=== PATIENT | male | born 1950 | race Two or more races ===

== ENCOUNTER 2024-11-25 17:46 | Inpatient (IN) | payer OTHER ==
[~2024-11-25] VITALS: Ht 177.8 cm; Wt 134.8 kg
--- NOTE | 2024-11-25 19:31 | DVH ---
CHEST RADIOGRAPH Indication: sob Technique: Single frontal view of the chest was obtained Comparison: None FINDINGS: Lines and Tubes: Dual-chamber pacemaker in place Lungs: Poor inspiratory effort Pleura: No effusion. No pneumothorax. Cardiomediastinal contours: Unremarkable Bones: No acute osseous abnormality. IMPRESSION: 1. No acute cardiopulmonary disease. 2. Poor inspiratory effort.
--- NOTE | 2024-11-25 20:02 | ED.PDOC ---
History of Present Illness HPI Comments 74 y/o obese M, with a Hx of bronchitis, COPD w/home O2, DM, HTN, HI, PNA, PTCA, and Pacemaker, is [id number] family for c/o shortness of breath, weakness worsened today. Per family member, patient endorses on ongoing symptom, intermittently, for the past 2x months. He is reported to have had been hospita lized and placed in rehabilitation facilities for symptoms following PNA diagnosis since onset of symptom. Patient also has a reported "70% heart blockage" and was not able to get access to mobile O2 that was prescribed at the moment. Patient denies any chest pain, cough, congestion, fever, chills, or other associated symptoms or modifying factors at this time. Chief Complaint: Shortness of Breath Time Seen by MD: 18:30 Primary Care Provider: out of area Reviewed Notes: Nurses Notes, Medications, Allergies Allergies: Coded Allergies: Hydromorphone (Verified Adverse Reaction, Unknown, hallucinations, 11/25/24) Information Source: Patient, Relative Mode of Arrival: Ambulatory Past Medical History PAST MEDICAL HISTORY: COPD (w/home O2), DM, HTN, HI Past Medical History (Other): PNA. bronchitis Surgical History: Pacemaker, PTCA Family History Family History: Unknown Social History Smoker: Non-Smoker Alcohol: Denies ETOH Use Drugs: Denies Drug Use Lives In: Home All Other Systems: Reviewed and Negative (Comprehensive systems review obtained and negative except for what is stated in the HPI.) Physical Exam General Appearance: No Apparent Distress, Obese, Other (frail and elderly appearance, speaks full sentences) HEENT: Normal ENT Inspection, Pharynx Normal, TMs Normal Neck: Full Range of Motion, Non-Tender, Normal, Normal Inspection Respiratory: Chest Non-Tender, Lungs Clear, No Accessory Muscle Use, No Respiratory Distress, Normal Breath Sounds Cardiovascular: No Edema, No JVD, No Murmur, No Gallop, Normal Peripheral Pulses, Regular Rate/Rhythm Breast Exam: Deferred Gastrointestinal: No Organomegaly, Non Tender, No Pulsatile Mass, Normal Bowel Sounds, Soft Genitalia: Deferred Pelvic: Deferred Rectal: Deferred Extremities: No calf tenderness, Normal capillary refill, Normal inspection, Normal range of motion, Non-tender, No pedal edema Musculoskeletal : Apperance: Normal Neurologic: Alert, roofing sales representative II-XII nml as Tested, No Motor Deficits, Normal Affect, Normal Mood, No Sensory Deficits Cerebellar Function: Normal Reflexes: Normal Skin: Dry, Normal Color, Warm Lymphatic: No Adenopathy Was a procedure done? Was a procedure done?: No EKG EKG : Pulse Rate (adult): 62 [place]: Normal Cardiac Rhythm: Paced Block: None Hypertrophy: None ST: Normal Differential Dx Considerations may include: PNA, URI, viral syndrome, PE, HI, chf, respiratory failure, copd exacerbation, pleural effusion, lung mass X-Ray, Labs, Meds, VS Vital Signs Date Time Temp Pulse Resp B/P (MAP) Pulse Ox O2 Delivery O2 Flow Rate FiO2 11/25/24 20:52 66 19 92 Room Air* 0 21 11/25/24 20:51 98.7 66 19 102/69 (80) 92 98.7 11/25/24 20:02 62 11/25/24 18:00 62 11/25/24 17:56 97.0 77 16 145/110 (122) 96 97.0 Lab Test 11/25/24 19:30 Range/Units White Blood Count 12.8 H 4.4-10.8 10^3/uL Red Blood Count 5.06 4.5-5.90 10^6/uL Hemoglobin 16.6 13.5-17.5 g/dL Hematocrit 47.2 41.0-53.0 % Mean Corpuscular Volume 93.2 80.0-100.0 fL Mean Corpuscular Hemoglobin 32.8 H 28.0-32.0 pg Mean Corpuscular Hemoglobin Concent 35.1 32.0-36.0 g/dL Red Cell Distribution Width 16.0 H 11.8-14.3 % Platelet Count 337 140-450 10^3/uL Mean Platelet Volume 6.9 6.9-10.8 fL Neutrophils (%) (Auto) 68.6 37.0-80.0 % Lymphocytes (%) (Auto) 22.7 10.0-50.0 % Monocytes (%) (Auto) 7.6 0.0-12.0 % Eosinophils (%) (Auto) 0.7 0.0-7.0 % Basophils (%) (Auto) 0.4 0.0-2.0 % Neutrophils # (Auto) 8.8 H 1.6-8.6 10 ^3/uL Lymphocytes # (Auto) 2.9 0.4-5.4 10 ^3/uL Monocytes # (Auto) 1.0 0-1.3 10 ^3/uL Eosinophils # (Auto) 0.1 0-0.8 10 ^3/uL Basophils # (Auto) 0 0-0.2 10 ^3/uL Nucleated Red Blood Cells 0.1 % Sodium Level 136 136-145 mmol/L Potassium Level 5.7 *H 3.5-5.1 mmol/L Chloride Level 102 98-107 mmol/L Carbon Dioxide Level 27 20-31 mmol/L Anion Gap 7 5-15 Blood Urea Nitrogen 28 H 9-23 mg/dL Creatinine 2.04 H 0.700-1.30 mg/dL Glomerular Filtration Rate Calc 34 >90 mL/min BUN/Creatinine Ratio 13.7 10.0-20.0 Serum Glucose 206 H 74-106 mg/dL Calcium Level 10.0 8.7-10.4 mg/dL Troponin I High Sensitivity 18 </=54 ng/L B-Type Natriuretic Peptide 61.39 0-100 pg/mL Current Medications Medications (Trade) Dose Ordered Sig/Matt Route Start Time Stop Time Status Last Admin Ondansetron HCl (Zofran Po) 4 mg ONCE ONCE PO 11/25/24 18:45 11/25/24 18:46 DC 11/25/24 20:51 [place] [id number] Ph: [phone] DIAGNOSTIC IMAGING Diagnostic Imaging Report : [id number] Signed PATIENT: WILTON MARQUEZ ACCT: [id number] UNIT: [id number] : 1950 LOC: ER ROOM / BED: / AGE / SEX: 74 / M ADM STATUS: REG ER SERVICE [id number] ORDERING PHYSICIAN: DESMOND TREVINO MD PROCEDURE(s): CXRP - CHEST PORTABLE REASON: sob ORDER NUMBER(s): [id number], ACCESSION NUMBER(s): [id number] CHEST RADIOGRAPH Indication: sob Technique: Single frontal view of the chest was obtained Comparison: None FINDINGS: Lines and Tubes: Dual-chamber pacemaker in place Lungs: Poor inspiratory effort Pleura: No effusion. No pneumothorax. Cardiomediastinal contours: Unremarkable Bones: No acute osseous abnormality. IMPRESSION: 1. No acute cardiopulmonary disease. 2. Poor inspiratory effort. ATED BY: CARLEEN GROVER Jr., DO DICTATED DATE/TIME: 11/25/241928 SIGNED BY: CARLEEN GROVER Jr., DO SIGNED DATE/TIME: 11/25/241928 CC: Time of 1ST Reevaluation: 19:00 Reevaluation 1ST: Unchanged Patient Education/Counseling: Diagnosis, Treatment Family Education/Counseling: Diagnosis, Treatment Additional Information Previous medical encounters reviewed: n/a The following tests were ordered, and results were reviewed by me: EKG, troponin, BMP, BNP, CBC, CXR Additional Information was gathered from interviewing the following independent historians: family I reviewed and agreed with the following test results read by other providers: CXR I discussed treatment and results with medical personnel and: Patient, family Departure 1 Departure Time of Disposition: 21:01 Impression: Primary Impression: Dyspnea Qualified Codes: R06.00 - Dyspnea, unspecified Additional Impressions: Generalized weakness Renal failure Qualified Codes: N17.9 - Acute kidney failure, unspecified Hyperkalemia Disposition: ADMITTED INPATIENT Admit to: Tele Condition: Serious Discharged With: Self, Relative Critical Care Note Critical Care Time?: Yes (55 min-critical care time only) Critical care comment: Due to concerns for patients condition deteriorating, the care required my highest level of attention and readiness to intervene. I assessed the patient, reviewed the medical records, ordered the appropriate tests and treatments, then reassessed for results and responsiveness. I communicated with medical personnel and consultants and formulated a plan of care. Total critical care time excludes any procedures Stability Stability form required: No Heart Score Heart Score: Heart Score Response (Comments) Value History Moderate Suspicious 1 EKG Normal 0 Age >65 2 Risk Factors >3 or Hx ASHD 2 Troponin Normal limit 0 Total 5 I personally scribed for DESMOND TREVINO MD ([email or web address]) on 11/25/24 at 20:02. Electr onically submitted by Michael Kang ([email or web address]). DESMOND TREVINO MD Nov 25, 2024 20:02
[2024-11-25 20:18] LABS: Basophils # (auto) 0 10 ^3/uL (0-0.2); Basophils % (auto) 0.4 % (0.0-2.0); Eosinophils # (auto) 0.1 10 ^3/uL (0-0.8); Eosinophils % (auto) 0.7 % (0.0-7.0); Hematocrit 47.2 % (41.0-53.0); Hemoglobin 16.6 g/dL (13.5-17.5); Lymphocytes # (auto) 2.9 10 ^3/uL (0.4-5.4); Lymphocytes % (auto) 22.7 % (10.0-50.0); Mean Corpuscular Hemoglobin 32.8 pg (28.0-32.0); Mean Corpuscular Hgb Conc. 35.1 g/dL (32.0-36.0); Mean Corpuscular Volume 93.2 fL (80.0-100.0); Monocytes % (auto) 7.6 % (0.0-12.0); Neutrophils # (auto) 8.8 10 ^3/uL (1.6-8.6); Neutrophils % (auto) 68.6 % (37.0-80.0); Nucleated Red Blood Cells % 0.1 %; Platelet Count (auto) 337 10^3/uL (140-450); Red Blood Cells 5.06 10^6/uL (4.5-5.90); White Blood Cell 12.8 10^3/uL (4.4-10.8)
[2024-11-25 20:23] LABS: Chloride 102 mmol/L (98-107); Sodium 136 mmol/L (136-145)
[2024-11-25 20:24] LABS: Anion Gap 7 (5-15); Carbon Dioxide 27 mmol/L (20-31)
[2024-11-25 20:29] LABS: BUN/Creatinine Ratio 13.7 (10.0-20.0)
[2024-11-25 20:30] LABS: Blood Urea Nitrogen 28 mg/dL (9-23); Glucose 206 mg/dL (74-106)
[2024-11-25 20:32] LABS: Potassium 5.7 mmol/L (3.5-5.1)
[2024-11-25] MEDS: ONDANSETRON ODT 4 MG TAB PO ONE (20:51)
[2024-11-25 20:52] VITALS: PULSE 66; RESP 19; O2SAT 92
[2024-11-26] VITALS (12 sets, daily range): BP systolic 104–128; BP diastolic 62–77; PULSE 67–90; RESP 14–22; TEMP 97.5–98.8; O2SAT 94–98
[2024-11-26] MEDS ORDERED: IPRATROPIUM BROM 0.5 MG/2.5ML INH SOL NEB PRN
[2024-11-26] MEDS ORDERED: NITROGLYCERIN 0.4 MG SL TAB SL PRN
[2024-11-26] MEDS ORDERED: DEXTROSE (50%) 50ML SYRG IV PRN
[2024-11-26] MEDS ORDERED: MORPHINE SULFATE INJ 2 MG/ml SYRG IV PRN
[2024-11-26] MEDS: ACCU-CHEK COMFORT CURVE STRIP VI SCH (00:56)
[2024-11-26] MEDS: SODIUM ZIRCONIUM CYCL 10 GM PAK PO ONE ×2 (00:59→14:14)
[2024-11-26] MEDS: InsuLIN REG 1unit/0.01ml Soln (100units/ml) SC SCH (01:00)
--- NOTE | 2024-11-26 04:29 | DVHHP2 ---
History of Present Illness Reason for Visit: Shortness for breath History of Present Illness 74-year-old male presents for evaluation of shortness for breath. Patient reports being discharged four days ago from a rehab facility. The patient was supposed to receiving oxygen tank yesterday which never came. He presented for worsening shortness for breath that has been ongoing for the past two days. Denies chest pain, cough or fever. No abdominal pain. No other acute complaints reported. Past Medical History COPD, diabetes mellitus, hypertension, mi Past Surgical History Pacemaker and PTCA Family History Noncontributory Smoke: No ALCOHOL: none Drugs: None Lives: with Family Review of Systems Review of Systems Review of systems are currently negative otherwise addressed in HPI. Allergies: Coded Allergies: Hydromorphone (Verified Adverse Reaction, Unknown, hallucinations, 11/25/24) Medications Current Medications Medications Dose Ordered Sig/Matt Route Start Time Stop Time Status Last Admin Dose Admin Albuterol 2.5 mg Q6HPRN PRN NEB 11/26/24 00:00 Amlodipine Besylate 5 mg DAILY PO 11/26/24 10:00 Aspirin 81 mg DAILY PO 11/26/24 10:00 Ipratropium [place] 0.5 mg Q6HPRN PRN NEB 11/26/24 00:00 Diagnostic Test (Pha) 1 strip Q6HR 11/26/24 00:00 11/26/24 00:56 1 STRIP Insulin Human Regular Q6HR SC 11/26/24 00:00 11/26/24 01:00 4 UNITS Dextrose 50 ml UD PRN IV 11/26/24 00:00 Ondansetron HCl 4 mg Q4HP PRN IV 11/26/24 00:00 Acetaminophen 650 mg Q6HP PRN PO 11/26/24 00:00 Nitroglycerin 0.4 mg Q5MINP PRN SL 11/26/24 00:00 Morphine Sulfate 2 mg Q30M PRN IV 11/26/24 00:00 UNV Exam Vital Signs Vital Signs Date Time Temp Pulse Resp B/P (MAP) Pulse Ox O2 Delivery O2 Flow Rate FiO2 11/26/24 01:04 98.8 62 20 104/62 (76) 95 98.8 11/26/24 01:00 2.0 28 11/26/24 00:55 Nasal Cannula* Exam Gen: 74-year-old male in mild distress Skin: Warm, dry, normal color and texture, no rash. HEENT: Normocephalic atraumatic, mucous membranes moist and pink. Neck: Cervical and supraclavicular nodes normal without enlargement, trachea is midline, thyroid gland is normal without masses. Pulmonary: Diminished breath sounds bilaterally Cardiac: Regular rate and rhythm. No murmur Abdomen: Soft, nontender, nondistended, bowel sounds present all 4 quadrants, no guarding, no rigidity, no organomegaly. Extremities: No cyanosis, clubbing, no edema Neuro: Cranial nerves II through XII grossly intact, normal affect and speech, no focal motor deficits. Labs/Xrays ORDERING PHYSICIAN: DESMOND TREVINO MD PROCEDURE(s): CXRP - CHEST PORTABLE REASON: sob ORDER NUMBER(s): [id number], ACCESSION NUMBER(s): [id number] CHEST RADIOGRAPH Indication: sob Technique: Single frontal view of the chest was obtained Comparison: None FINDINGS: Lines and Tubes: Dual-chamber pacemaker in place Lungs: Poor inspiratory effort Pleura: No effusion. No pneumothorax. Cardiomediastinal contours: Unremarkable Bones: No acute osseous abnormality. IMPRESSION: 1. No acute cardiopulmonary disease. 2. Poor inspiratory effort. Labs Test 11/26/24 00:55 11/25/24 23:53 11/25/24 19:30 Range/Units POC Glucose 227 H 70-106 mg/dl D-Dimer, Quantitative < 0.19 0.0-0.49 mg/L FEU Troponin I High Sensitivity 18 </=54 ng/L White Blood Count 12.8 H 4.4-10.8 10^3/uL Red Blood Count 5.06 4.5-5.90 10^6/uL Hemoglobin 16.6 13.5-17.5 g/dL Hematocrit 47.2 41.0-53.0 % Mean Corpuscular Volume 93.2 80.0-100.0 fL Mean Corpuscular Hemoglobin 32.8 H 28.0-32.0 pg Mean Corpuscular Hemoglobin Concent 35.1 32.0-36.0 g/dL Red Cell Distribution Width 16.0 H 11.8-14.3 % Platelet Count 337 140-450 10^3/uL Mean Platelet Volume 6.9 6.9-10.8 fL Neutrophils (%) (Auto) 68.6 37.0-80.0 % Lymphocytes (%) (Auto) 22.7 10.0-50.0 % Monocytes (%) (Auto) 7.6 0.0-12.0 % Eosinophils (%) (Auto) 0.7 0.0-7.0 % Basophils (%) (Auto) 0.4 0.0-2.0 % Neutrophils # (Auto) 8.8 H 1.6-8.6 10 ^3/uL Lymphocytes # (Auto) 2.9 0.4-5.4 10 ^3/uL Monocytes # (Auto) 1.0 0-1.3 10 ^3/uL Eosinophils # (Auto) 0.1 0-0.8 10 ^3/uL Basophils # (Auto) 0 0-0.2 10 ^3/uL Nucleated Red Blood Cells 0.1 % Sodium Level 136 136-145 mmol/L Potassium Level 5.7 *H 3.5-5.1 mmol/L Chloride Level 102 98-107 mmol/L Carbon Dioxide Level 27 20-31 mmol/L Anion Gap 7 5-15 Blood Urea Nitrogen 28 H 9-23 mg/dL Creatinine 2.04 H 0.700-1.30 mg/dL Glomerular Filtration Rate Calc 34 >90 mL/min BUN/Creatinine Ratio 13.7 10.0-20.0 Serum Glucose 206 H 74-106 mg/dL Calcium Level 10.0 8.7-10.4 mg/dL B-Type Natriuretic Peptide 61.39 0-100 pg/mL Assessment/Plan Assessment/Plan Assessment Acute on chronic respiratory failure Acute renal failure Hypokalemia Uncontrolled diabetes mellitus Plan Admit the patient to [facility] to the hospitalist Pulmonary consultation Nephrology consult Echocardiogram pending Renal ultrasound pending Continue treatment per orders. Plan discussed with: Patient My Orders Orders - ADAM ABRAMSCNP Procedure Category Date Status Time Albuterol Medneb PHA 11/26/24 In Process (Ventolin Medneb) 00:00 Urinalysis LAB 11/25/24 Logged 23:46 Amlodipine Tablet PHA 11/26/24 In Process (Norvasc Tablet) 10:00 Aspirin Tablet PHA 11/26/24 In Process 10:00 Ipratropium Medneb PHA 11/26/24 In Process (Atrovent Medneb) 00:00 *Dr. Parviz Yusuf CONS 11/25/24 Transmitted -[place] 23:46 Consistent DIET 11/26/24 Transmitted Carb(Ccho)Diabetes Breakfast Basic Metabolic Panel LAB 11/26/24 Logged 04:00 Glucose Blood PHA 11/26/24 In Process (Accu-Chek Comfort 00:00 Insulin R (Human) PHA 11/26/24 In Process (Insulin R) 00:00 Dextrose 50% Syringe PHA 11/26/24 In Process 00:00 Admit ADMIT 11/25/24 Transmitted 23:46 Ondansetron Hcl PHA 11/26/24 In Process (Zofran) 00:00 Complete Blood Count LAB 11/26/24 Logged 04:00 Echo 2d Mode Cardiac US 11/25/24 Logged DOP 23:46 Condition: Fair JEAN PIERRE 11/25/24 In Process 23:46 Acetaminophen Tablet PHA 11/26/24 In Process (Tylenol Tablet) 00:00 Bedrest With Bathroom JEAN PIERRE 11/25/24 In Process Privileg 23:46 Nitroglycerin PHA 11/26/24 In Process Sublingual (Ntrostat 00:00 Morphine Sulfate PHA 11/26/24 Pending Injection 00:00 Stat Ekg For Chest JEAN PIERRE 11/25/24 In Process Pain 23:46 Notify Md Of Changes JEAN PIERRE 11/25/24 In Process From Base 23:46 Automobile Tester For JEAN PIERRE 11/25/24 In Process 24 Hours 23:46 Emergency Dysrhythmia JEAN PIERRE 11/25/24 In Process Protocol 23:46 Rhythm Strips Once JEAN PIERRE 11/25/24 In Process Every Shift 23:46 Oxygen By Nasal RT 11/25/24 Transmitted Cannula 23:46 *Consult CONS 11/25/24 Transmitted / 23:46 Kidney US 11/26/24 Taken 00:00 Date of Service: Nov 25, 2024 Billing Provider: ADAM ABRAMS Common Visit Codes: [id number] INP/OBS CARE (HIGH) ADAM ABRAMS Nov 26, 2024 04:29
[2024-11-26] MEDS: ACETAMINOPHEN 325 MG TAB PO PRN (05:14)
[2024-11-26 05:27] LABS: Basophils # (auto) 0.1 10 ^3/uL (0-0.2); Basophils % (auto) 0.6 % (0.0-2.0); Eosinophils # (auto) 0 10 ^3/uL (0-0.8); Eosinophils % (auto) 0.3 % (0.0-7.0); Hematocrit 44.8 % (41.0-53.0); Hemoglobin 15.8 g/dL (13.5-17.5); Lymphocytes # (auto) 3.9 10 ^3/uL (0.4-5.4); Lymphocytes % (auto) 24.3 % (10.0-50.0); Mean Corpuscular Hemoglobin 32.8 pg (28.0-32.0); Mean Corpuscular Hgb Conc. 35.1 g/dL (32.0-36.0); Mean Corpuscular Volume 93.2 fL (80.0-100.0); Monocytes # (auto) 1.2 10 ^3/uL (0-1.3); Monocytes % (auto) 7.6 % (0.0-12.0); Neutrophils # (auto) 10.9 10 ^3/uL (1.6-8.6); Neutrophils % (auto) 67.2 % (37.0-80.0); Nucleated Red Blood Cells % 0.1 %; Platelet Count (auto) 294 10^3/uL (140-450); Red Blood Cells 4.81 10^6/uL (4.5-5.90); Red Cell Distribution Width 16.2 % (11.8-14.3); White Blood Cell 16.1 10^3/uL (4.4-10.8)
[2024-11-26 05:37] LABS: Chloride 100 mmol/L (98-107)
[2024-11-26 05:38] LABS: Anion Gap 8 (5-15); Calcium 9.7 mg/dL (8.7-10.4); Carbon Dioxide 26 mmol/L (20-31)
[2024-11-26 05:43] LABS: BUN/Creatinine Ratio 14.6 (10.0-20.0)
[2024-11-26 05:44] LABS: Blood Urea Nitrogen 37 mg/dL (9-23); Glucose 144 mg/dL (74-106); Potassium 5.5 mmol/L (3.5-5.1); Sodium 134 mmol/L (136-145)
--- NOTE | 2024-11-26 06:21 | DVH ---
INDICATION: renal failure TECHNIQUE: Multiple real-time sonographic images of the kidneys and bladder were obtained. COMPARISON: None FINDINGS: The right kidney measures 11.0 cm in length, which is normal in size. There is normal echog enicity of the right kidney. No hydronephrosis. Decreased cortical thickness. The left kidney measures 11.4 cm in length, which is normal in size. There is normal echogenicity of the left kidney. There is a cyst measuring 4.0 x 3.2 x 3.1 cm. No hydronephrosis. Decreased cortical thickness. Urinary bladder is underdistended. Enlarged prostate measuring 85 cc in volume. IMPRESSION: 1. No hydronephrosis. Decreased cortical thickness. 2. Underdistended urinary bladder. 3. Enlarged prostate.
--- NOTE | 2024-11-26 07:16 | ECG ---
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
[2024-11-26 09:06] LABS: COVID19 ANTIGEN SOFIA FIA NEGATIVE (NEGATIVE); Rapid Influenza A Negative (Negative); Rapid Influenza B Negative (Negative)
[2024-11-26] MEDS: amLODIPine BESYLATE 5 MG TAB PO SCH (10:39)
[2024-11-26] MEDS: ASPirin 81 mg TAB PO SCH (10:39)
[2024-11-26] MEDS: BUDESONIDE (INHALATION) 0.5 MG/2 ML NEB NEB SCH (11:10)
[2024-11-26] MEDS: ALBUTEROL SULF 2.5 MG/0.5ML(0.5%) NEB SOLN NEB PRN (11:15)
[2024-11-26] MEDS: SODIUM BICARB 50mEq/50ml Vial 50 ML in SOD CHL 0.45% 1,000 ML IV ONE (13:15)
[2024-11-26] MEDS ORDERED: METO-289 PO (13:38)
[2024-11-26] MEDS ORDERED: FURO20TA3 PO (13:39)
[2024-11-26] MEDS ORDERED: VALS40TA2 PO (13:40)
[2024-11-26] MEDS ORDERED: ISOS1TAB29 PO (13:40)
[2024-11-26] MEDS ORDERED: AML5T PO (13:41)
[2024-11-26] MEDS ORDERED: CYCL-837 PO (13:45)
[2024-11-26] MEDS ORDERED: OXYC-963 PO (13:54)
[2024-11-26] MEDS ORDERED: ONDA-155 PO (13:55)
[2024-11-26] MEDS ORDERED: TRAZ-181 PO (13:56)
[2024-11-26] MEDS ORDERED: DICY10CA PO (13:57)
[2024-11-26] MEDS ORDERED: LIDO5DIS21 TOP (13:57)
[2024-11-26] MEDS ORDERED: MONT-8 PO (13:59)
[2024-11-26] MEDS ORDERED: APIX5TAB PO (14:00)
[2024-11-26] MEDS ORDERED: TICA90TA PO (14:02)
[2024-11-26] MEDS ORDERED: SPIR25TA8 PO (14:04)
[2024-11-26] MEDS ORDERED: DAPA10TA3 PO (14:05)
[2024-11-26] MEDS ORDERED: OMEP-434 PO (14:06)
[2024-11-26] MEDS ORDERED: TAMS0.4C39 PO (14:06)
[2024-11-26] MEDS ORDERED: ATOR40TA52 PO (14:07)
[2024-11-26] MEDS: cefTRIAXone 1GM/50ML D5W 50 ML IV SCH (14:14)
--- NOTE | 2024-11-26 14:32 | DVHPN2 ---
Subjective PATIENT CONTINUES TO REPORT HAVING SHORTNESS OF BREATH Reviewed: Care Plan, H&P, Labs, Medications Changes from previous H/P or p: No Changes General: Per HPI Objective Vitals Vital Signs Date Time Temp Pulse Resp B/P (MAP) Pulse Ox O2 Delivery O2 Flow Rate FiO2 11/26/24 12:30 97.5 72 18 128/77 (94) 95 97.5 11/26/24 11:10 Nasal Cannula* 2 28 General Appearance: Alert, Oriented X3, Cooperative, mild distress HEENT: Atraumatic, PERRLA Lungs: Clear to auscultation, Normal air movement Cardiovascular: Regular rate, Normal S1, Normal S2 Abdomen: Normal bowel sounds, Soft, No tenderness Genitourinary: No Apparent Abnormalities Musculoskeletal: Normal sensory function, Normal motor function Skin: Dry, Intact Psych/Mental Status: Mental status NL, Mood NL Medications Current Medications Medications Dose Ordered Sig/Matt Route Start Time Stop Time Status Last Admin Dose Admin Albuterol 2.5 mg Q6HPRN PRN NEB 11/26/24 00:00 11/26/24 11:15 2.5 MG Amlodipine Besylate 5 mg DAILY PO 11/26/24 10:00 Aspirin 81 mg DAILY PO 11/26/24 10:00 11/26/24 10:39 81 MG Ipratropium [place] 0.5 mg Q6HPRN PRN NEB 11/26/24 00:00 Diagnostic Test (Pha) 1 strip Q6HR 11/26/24 00:00 11/26/24 12:00 1 STRIP Insulin Human Regular Q6HR SC 11/26/24 00:00 11/26/24 12:00 3 UNITS Dextrose 50 ml UD PRN IV 11/26/24 00:00 Ondansetron HCl 4 mg Q4HP PRN IV 11/26/24 00:00 Acetaminophen 650 mg Q6HP PRN PO 11/26/24 00:00 11/26/24 05:14 650 MG Nitroglycerin 0.4 mg Q5MINP PRN SL 11/26/24 00:00 Morphine Sulfate 2 mg Q30M PRN IV 11/26/24 00:00 Budesonide 0.25 mg BID NEB 11/26/24 10:00 11/26/24 11:10 0.25 MG Ceftriaxone Sodium 50 ml @ 100 mls/hr DAILY@09 IV 11/26/24 13:30 11/26/24 14:14 100 MLS/HR Isosorbide Mononitrate 60 mg DAILY PO 11/27/24 10:00 UNV Lidocaine 1 patch DAILY TOP 11/27/24 10:00 UNV Laboratory Results Laboratory Tests 11/26/24 05:10 Chemistry Test 11/25/24 19:30 11/26/24 05:10 Calcium Level 10.0 mg/dL (8.7-10.4) 9.7 mg/dL (8.7-10.4) Coagulation Test 11/25/24 23:53 D-Dimer, Quantitative < 0.19 mg/L FEU (0.0-0.49) Cardiac Markers Test 11/25/24 19:30 B-Type Natriuretic Peptide 61.39 pg/mL (0-100) Assessment/Plan Assessment/Plan Impression: -acute hypoxic respiratory failure -probable COPD with exacerbation -abdominal pain, left lower quadrant -coronary artery disease with previous stent placement -chronic back pain with both cervical and lumbar spinal stenosis, with surgery -obesity -probable acute kidney injury/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 Total time spent with patient discussing and formulating plan of care: 35 minutes. This medical document was created using an electronic medical record system with [employer] dictation system. Although this document has been carefully reviewed, there may still be some phonetic and typographical errors. These areas are purely typographical due to imperfections of the software programs, and do not reflect any compromise in the patient's medical care. Plan discussed with: Patient, Other (RN) My Orders Orders - SUSY ABBOTT STUDENT FINANCIAL SERVICES COUNSELOR Procedure Category Date Status Time Urine Creatinine LAB 11/26/24 Logged 13:14 Sodium Bicarb PHA 11/26/24 In Process 50meq/50ml Vial 13:15 Complete Blood Count LAB 11/27/24 Verified 04:00 Basic Metabolic Panel LAB 11/27/24 Verified 04:00 Ceftriaxone 1gm/50ml PHA 11/26/24 In Process D5w (Rocephin) 13:30 Hepatitis B Surface LAB 11/26/24 In Process Antigen 13:25 Mrsa Screen ZAC 11/26/24 Uncollected 13:25 Isosorbide PHA 11/27/24 Transmitted Mononitrate Tablet 10:00 Lidocaine 5% Topical PHA 11/27/24 Transmitted Patch (Lidoderm 5% 10:00 Metoprolol Xl PHA 11/26/24 Transmitted Succinate (Toprol Xl) 22:00 Montelukast Tablet PHA 11/27/24 Transmitted (Singulair Tablet) 10:00 Tamsulosin PHA 11/26/24 Transmitted Hydrochloride (Flomax) 22:00 Ticagrelor (Brilinta) PHA 11/26/24 Transmitted 22:00 Trazodone Hcl PHA 11/27/24 Transmitted (Desyrel) 10:00 (Nf) Atorvastatin PHA 11/26/24 Transmitted Calcium 22:00 (Nf) Oxycodone W/ PHA 11/26/24 Transmitted Acetaminophen (Oxycodo 18:00 Hemoglobin A1c LAB 11/26/24 Transmitted 14:22 Lipid Panel LAB 11/26/24 Transmitted 14:22 Date of Service: Nov 26, 2024 Billing Provider: SUSY ABBOTT NP Common Visit Codes: [id number] INP/OBS CARE(HIGH) SUSY ABBOTT NP Nov 26, 2024 14:32
[2024-11-26 14:56] LABS: Triglycerides 107 mg/dL (< 150)
[2024-11-26 14:57] LABS: LDL Cholesterol 34 mg/dL (< 100)
[2024-11-26 14:58] LABS: Cholesterol 83 mg/dL (< 200)
[2024-11-26 15:02] LABS: HDL Cholesterol 30 mg/dL (40-59)
[2024-11-26] MEDS: OXYCODONE W/ ACETAMINOPHEN 5/325MG TABLET PO PRN (16:29)
--- NOTE | 2024-11-26 19:48 | DVHINCON2 ---
Date of service: Nov 26, 2024 Reason for Consultation [place] History of Present Illness 74 yMale with past medical history of Chronic kidney disease three, diabetes Chronic kidney disease3,, coronary artery disease status post recent stent, recent prolonged hospitalization presented chief complaints of shortness of breath,, as per patient's there visiting from [place] went on a cruise in [facility] and got flu and patient got sick and was treated for pneumoniae in hospital and later he developed having OR that needed stent placed Patient follows nephrology in [place] Past Medical History per HPI Allergies: Coded Allergies: Hydromorphone (Verified Adverse Reaction, Unknown, hallucinations, 11/25/24) Home Meds Reported Medications Atorvastatin Calcium (ATORVASTATIN CALCIUM) 40 Mg Tab, 1 TAB PO HS, #30 TAB 5 Refills 11/26/24 Tamsulosin Hcl (Tamsulosin Hcl) 0.4 Mg Cap, 1 CAP PO HS, #30 CAP 5 Refills 11/26/24 Omeprazole Magnesium (Omeprazole) 20 Mg Tab, 40 MG PO, TAB 11/26/24 Dapagliflozin Propanediol (Dapagliflozin Propanediol) 10 Mg Tab, 10 MG PO, TAB 11/26/24 Spironolactone (Spironolactone) 25 Mg Tab, 1 TAB PO BID, #90 TAB 1 Refill 11/26/24 Ticagrelor Base (BRILINTA) 90 Mg Tab, 90 MG PO BID, TAB 11/26/24 Apixaban Base (ELIQUIS) 5 Mg Tab, 5 MG PO BID, TAB 11/26/24 Montelukast Sodium (MONTELUKAST SODIUM) 10 Mg Tab, 25 TAB PO DAILY, #30 TAB 5 Refills 11/26/24 Dicyclomine Hcl (BENTYL CAPSULE) 10 Mg Cp, 1 CAP PO DAILY, #90 CAP 11 Refills 11/26/24 Lidocaine (LIDODERM 5% TOPICAL PATCH) 1 Patch Ph, 1 PATCH TOP DAILY, #30 PATCH 1 Refill 11/26/24 Trazodone HCl (Trazodone Hydrochloride) 50 Mg Tab, 25 MG PO DAILYP, TAB 11/26/24 Ondansetron HCl (Ondansetron) 4 Mg Tab, 4 MG PO Q8HPRN, TAB 11/26/24 Oxycodone W/ Acetaminophen (Oxycodone/Acetaminophen 10-300 mg) 1 Tab Tab, 1 TAB PO Q6HPRN, TAB 11/26/24 Cyclobenzaprine Hcl (Cyclobenzaprine Hcl) 5 Mg Tab, 1 TAB PO TID, #30 TAB 11/26/24 Amlodipine Besylate (NORVASC TABLET) 5 Mg Tb, 1 TAB PO DAILY, #30 TAB 5 Refills 11/26/24 Isosorbide Mononitrate (Isosorbide Mononitrate Er) 60 Mg Tab, 1 TAB PO DAILY, #30 TAB 5 Refills 11/26/24 Valsartan (Diovan) 40 Mg Tab, 4 TAB PO DAILY, #90 TAB 1 Refill 11/26/24 Furosemide (Furosemide) 20 Mg Tab, 1 TAB PO DAILY, #90 TAB 1 Refill 11/26/24 Metoprolol Succinate (Metoprolol Succinate Er) 50 Mg Tab, 1 TAB PO BID, #30 TAB 5 Refills 11/26/24 Current Medications Current Medications Medications (Trade) Dose Ordered Sig/Matt Route PRN Reason Start Time Stop Time Status Last Admin Albuterol (Ventolin Medneb) 2.5 mg Q6HPRN PRN NEB SHORTNESS OF BREATH 11/26/24 00:00 11/26/24 11:15 Amlodipine Besylate (Norvasc Tablet) 5 mg DAILY PO 11/26/24 10:00 Aspirin 81 mg DAILY PO 11/26/24 10:00 11/26/24 10:39 Ipratropium [place] (Atrovent Medneb) 0.5 mg Q6HPRN PRN NEB SHORTNESS OF BREATH 11/26/24 00:00 Diagnostic Test (Pha) (Accu-Chek Comfort Curve T) 1 strip Q6HR 11/26/24 00:00 11/26/24 18:04 Insulin Human Regular (InsuLIN R) Q6HR SC 11/26/24 00:00 11/26/24 18:08 Dextrose 50 ml UD PRN IV Blood Sugar LESS THAN 60 11/26/24 00:00 Ondansetron HCl (Zofran) 4 mg Q4HP PRN IV NAUSEA / VOMITING 11/26/24 00:00 Acetaminophen (Tylenol Tablet) 650 mg Q6HP PRN PO PAIN SCALE 1-3 OR TEMP>100.4 11/26/24 00:00 11/26/24 05:14 Nitroglycerin (Ntrostat Sublingual) 0.4 mg Q5MINP PRN SL FOR CHEST PAIN 11/26/24 00:00 Morphine Sulfate 2 mg Q30M PRN IV FOR CHEST PAIN 11/26/24 00:00 Budesonide (Pulmicort) 0.25 mg BID NEB 11/26/24 10:00 11/26/24 11:10 Ceftriaxone Sodium 50 ml @ 100 mls/hr DAILY@09 IV 11/26/24 13:30 11/26/24 14:14 Isosorbide Mononitrate (Imdur Er Tablet) 60 mg DAILY PO 11/27/24 10:00 Lidocaine (Lidoderm 5% Topical Patch) 1 patch DAILY TOP 11/27/24 10:00 Metoprolol Succinate (Toprol Xl) 50 mg HS PO 11/26/24 22:00 Montelukast Sodium (Singulair Tablet) 10 mg DAILY PO 11/27/24 10:00 Tamsulosin HCl (Flomax) 0.4 mg HS PO 11/26/24 22:00 Ticagrelor (Brilinta) 90 mg BID PO 11/26/24 22:00 Trazodone HCl (Desyrel) 25 mg DAILYP PO 11/27/24 10:00 Atorvastatin Calcium (Lipitor) 40 mg HS PO 11/26/24 22:00 Oxycodone/ Acetaminophen (Percocet 5/ 325MG Tablet) 2 tab Q6HPRN PRN PO SEVERE PAIN (7-10 PAIN SCALE) 11/26/24 15:00 11/26/24 16:29 Family History: Alcoholism 19 CHILD, Name: Yordy (son), Age: 51, Onset:10's - 15 Arthritis G8 FATHER, Onset:Unknown Asthma G8 MOTHER, Onset:15's - 20 Cardiovascular disease G8 MOTHER, Onset:Unknown G8 FATHER, Onset:Unknown 19 CHILD, Name: Yordy (son), Age: 51, Onset:30's - 40 Cerebrovascular accident (CVA) G8 MOTHER, Onset:Unknown G8 FATHER, Onset:Unknown Diabetes mellitus G8 MOTHER, Onset:Unknown G8 FATHER, Onset:Unknown 19 CHILD, Name: Erika (daughter), Age: 49, Onset:Unknown 19 CHILD, Name: Fátima (daughter), Age: 47, Onset:Unknown Glaucoma Hypercholesterolemia G8 MOTHER, Onset:Unknown G8 FATHER, Onset:Unknown 19 CHILD, Name: November (daughter), Age: 49, Onset:Unknown 19 CHILD, Name: Fátima (daughter), Age: 47, Onset:Unknown Hypertension G8 MOTHER, Onset:Unknown G8 FATHER, Onset:Unknown 19 CHILD, Name: Yordy (son), Age: 51, Onset:Unknown Malignant neoplasm of breast G8 MOTHER, Onset:Unknown Seizure disorder G8 SISTER, Onset:Unknown Review of Systems HEENT-denies headache, denies vision changes, no hearing issue, denies neck complaints, denies throat issues Respiratory system-denies cough, positive shortness of breath Cardiovascular system-denies chest pain, denies palpitations Abdomen-denies abdominal pain, denies nausea, denies vomiting, denies constipation or diarrhea Musculoskeletal-denies swelling in the legs, denies pain in the extremities Genitourinary-denies urinary symptoms like dysuria, stream issues Neuro-denies dizziness, denies seizures Psychiatric-denies psychiatric history H&P Exam Vital Signs/I&O Vital Sign Date Time Temp Pulse Resp B/P (MAP) Pulse Ox O2 Delivery O2 Flow Rate FiO2 11/26/24 17:00 97.5 76 20 104/68 (80) 95 97.5 11/26/24 16:32 Nasal Cannula* 2 28 Physical Exam General-not in any distress HEENT-normocephalic, no icterus, no pallor, neck supple Respiratory-fair air entry bilateral, [id number] heard, no murmurs appreciated Abdominal-soft, nontender, nondistended Musculoskeletal-+pedal edema, no calf tenderness Genitourinary-deferred Neuro-awake alert oriented x3, Psychiatric-not agitated, cooperative, Labs/Diagnostic Data Labs/Diagnostic Data Laboratory Tests Test 11/26/24 17:19 11/26/24 12:04 11/26/24 08:10 11/26/24 06:04 Range/Units POC Glucose 142 H 177 H 171 H 70-106 mg/dl Influenza Type A Antigen Negative Negative Influenza Type B Antigen Negative Negative SARS-CoV-2 Antigen (Rapid) Negative NEGATIVE Test 11/26/24 05:10 11/26/24 00:55 11/25/24 23:53 11/25/24 21:58 Range/Units White Blood Count 16.1 #H 4.4-10.8 10^3/uL Red Blood Count 4.81 4.5-5.90 10^6/uL Hemoglobin 15.8 13.5-17.5 g/dL Hematocrit 44.8 41.0-53.0 % Mean Corpuscular Volume 93.2 80.0-100.0 fL Mean Corpuscular Hemoglobin 32.8 H 28.0-32.0 pg Mean Corpuscular Hemoglobin Concent 35.1 32.0-36.0 g/dL Red Cell Distribution Width 16.2 H 11.8-14.3 % Platelet Count 294 140-450 10^3/uL Mean Platelet Volume 6.8 L 6.9-10.8 fL Neutrophils (%) (Auto) 67.2 37.0-80.0 % Lymphocytes (%) (Auto) 24.3 10.0-50.0 % Monocytes (%) (Auto) 7.6 0.0-12.0 % Eosinophils (%) (Auto) 0.3 0.0-7.0 % Basophils (%) (Auto) 0.6 0.0-2.0 % Neutrophils # (Auto) 10.9 H 1.6-8.6 10 ^3/uL Lymphocytes # (Auto) 3.9 0.4-5.4 10 ^3/uL Monocytes # (Auto) 1.2 0-1.3 10 ^3/uL Eosinophils # (Auto) 0 0-0.8 10 ^3/uL Basophils # (Auto) 0.1 0-0.2 10 ^3/uL Nucleated Red Blood Cells 0.1 % Sodium Level 134 L 136-145 mmol/L Potassium Level 5.5 H 3.5-5.1 mmol/L Chloride Level 100 98-107 mmol/L Carbon Dioxide Level 26 20-31 mmol/L Anion Gap 8 5-15 Blood Urea Nitrogen 37 H 9-23 mg/dL Creatinine 2.54 H 0.700-1.30 mg/dL Glomerular Filtration Rate Calc 26 >90 mL/min BUN/Creatinine Ratio 14.6 10.0-20.0 Serum Glucose 144 H 74-106 mg/dL Hemoglobin A1c 5.5 <5.7 % A1C Calcium Level 9.7 8.7-10.4 mg/dL Triglycerides Level 107 < 150 mg/dL Cholesterol Level 83 < 200 mg/dL LDL Cholesterol 34 < 100 mg/dL HDL Cholesterol 30 L 40-59 mg/dL Hepatitis B Surface Antigen Negative Negative POC Glucose 227 H 70-106 mg/dl D-Dimer, Quantitative < 0.19 0.0-0.49 mg/L FEU Troponin I High Sensitivity 18 21 </=54 ng/L Test 11/25/24 19:30 Range/Units White Blood Count 12.8 H 4.4-10.8 10^3/uL Red Blood Count 5.06 4.5-5.90 10^6/uL Hemoglobin 16.6 13.5-17.5 g/dL Hematocrit 47.2 41.0-53.0 % Mean Corpuscular Volume 93.2 80.0-100.0 fL Mean Corpuscular Hemoglobin 32.8 H 28.0-32.0 pg Mean Corpuscular Hemoglobin Concent 35.1 32.0-36.0 g/dL Red Cell Distribution Width 16.0 H 11.8-14.3 % Platelet Count 337 140-450 10^3/uL Mean Platelet Volume 6.9 6.9-10.8 fL Neutrophils (%) (Auto) 68.6 37.0-80.0 % Lymphocytes (%) (Auto) 22.7 10.0-50.0 % Monocytes (%) (Auto) 7.6 0.0-12.0 % Eosinophils (%) (Auto) 0.7 0.0-7.0 % Basophils (%) (Auto) 0.4 0.0-2.0 % Neutrophils # (Auto) 8.8 H 1.6-8.6 10 ^3/uL Lymphocytes # (Auto) 2.9 0.4-5.4 10 ^3/uL Monocytes # (Auto) 1.0 0-1.3 10 ^3/uL Eosinophils # (Auto) 0.1 0-0.8 10 ^3/uL Basophils # (Auto) 0 0-0.2 10 ^3/uL Nucleated Red Blood Cells 0.1 % Sodium Level 136 136-145 mmol/L Potassium Level 5.7 *H 3.5-5.1 mmol/L Chloride Level 102 98-107 mmol/L Carbon Dioxide Level 27 20-31 mmol/L Anion Gap 7 5-15 Blood Urea Nitrogen 28 H 9-23 mg/dL Creatinine 2.04 H 0.700-1.30 mg/dL Glomerular Filtration Rate Calc 34 >90 mL/min BUN/Creatinine Ratio 13.7 10.0-20.0 Serum Glucose 206 H 74-106 mg/dL Calcium Level 10.0 8.7-10.4 mg/dL Troponin I High Sensitivity 18 </=54 ng/L B-Type Natriuretic Peptide 61.39 0-100 pg/mL Assessment Acute kidney injury on Chronic kidney disease IIIb hemodynamic mediated etiology Hyperkalemia secondary to spironolactone and Diovan Acute hypoxic respiratory failure Coronary artery disease status post recent stent Prostatomegaly Recommendations Hold spironolactone //Diovan as blood pressure on low side--okay to resume at discharge once Potassium and blood pressure is better Medical management of hyperkalemia as ordered Nephrology follow-up in [place] after discharge Patient to follow-up with urology as outpatient for prostatomegaly Plan discussed with: Patient, Spouse TJ MORRIS MD Nov 26, 2024 19:48
--- NOTE | 2024-11-26 21:07 | DVHINCON2 ---
Date of service: Nov 26, 2024 Referring Physician Braxton Stevens NP Reason for Consultation Acute on chronic hypoxic respiratory failure History of Present Illness A 74-year-old man with PMHx of COPD, diabetes mellitus, hypertension, KS, PTCA and pacemaker placement who presented to ED on 11/25/24 for evaluation of shortness of breath. Patient reported being discharged 4 days prior to presentation from a rehab facility. The patient was supposed to be receiving oxygen tank the day prior to presentation which never came. He presented for worsening shortness of breath ongoing for the past 2 days. Denied chest pain, cough, fever, abdominal pain or other acute complaints. Patient was admitted for further care and pulmonary consultation is requested for evaluation and management due to the above findings. Review of Systems: 14-point review of systems negative unless otherwise noted above. Past Medical History: COPD, diabetes mellitus, hypertension, KS, CAD. Past Surgical History: Pacemaker and PTCA Medications: Reviewed. Allergies: Hydromorphone. Family History: Asthma, heart disease, CVA, DM, glaucoma, hypertension, hypercholesterolemia, alcoholism, arthritis, breast cancer, seizure disorder. Social History: Nonsmoker. No alcohol or illicit drug use. Family History: Alcoholism 19 CHILD, Name: Yordy (son), Age: 51, Onset:10's - 15 Arthritis G8 FATHER, Onset:Unknown Asthma G8 MOTHER, Onset:15's - 20 Cardiovascular disease G8 MOTHER, Onset:Unknown G8 FATHER, Onset:Unknown 19 CHILD, Name: Yordy (son), Age: 51, Onset:30's - 40 Cerebrovascular accident (CVA) G8 MOTHER, Onset:Unknown G8 FATHER, Onset:Unknown Diabetes mellitus G8 MOTHER, Onset:Unknown G8 FATHER, Onset:Unknown 19 CHILD, Name: November (daughter), Age: 49, Onset:Unknown 19 CHILD, Name: Fátima (daughter), Age: 47, Onset:Unknown Glaucoma Hypercholesterolemia G8 MOTHER, Onset:Unknown G8 FATHER, Onset:Unknown 19 CHILD, Name: November (daughter), Age: 49, Onset:Unknown 19 CHILD, Name: Fátima (daughter), Age: 47, Onset:Unknown Hypertension G8 MOTHER, Onset:Unknown G8 FATHER, Onset:Unknown 19 CHILD, Name: Yordy (son), Age: 51, Onset:Unknown Malignant neoplasm of breast G8 MOTHER, Onset:Unknown Seizure disorder G8 SISTER, Onset:Unknown Allergies: Coded Allergies: Hydromorphone (Verified Adverse Reaction, Unknown, hallucinations, 11/25/24) Home Meds Reported Medications Atorvastatin Calcium (ATORVASTATIN CALCIUM) 40 Mg Tab, 1 TAB PO HS, #30 TAB 5 Refills 11/26/24 Tamsulosin Hcl (Tamsulosin Hcl) 0.4 Mg Cap, 1 CAP PO HS, #30 CAP 5 Refills 11/26/24 Omeprazole Magnesium (Omeprazole) 20 Mg Tab, 40 MG PO, TAB 11/26/24 Dapagliflozin Propanediol (Dapagliflozin Propanediol) 10 Mg Tab, 10 MG PO, TAB 11/26/24 Spironolactone (Spironolactone) 25 Mg Tab, 1 TAB PO BID, #90 TAB 1 Refill 11/26/24 Ticagrelor Base (BRILINTA) 90 Mg Tab, 90 MG PO BID, TAB 11/26/24 Apixaban Base (ELIQUIS) 5 Mg Tab, 5 MG PO BID, TAB 11/26/24 Montelukast Sodium (MONTELUKAST SODIUM) 10 Mg Tab, 25 TAB PO DAILY, #30 TAB 5 Refills 11/26/24 Dicyclomine Hcl (BENTYL CAPSULE) 10 Mg Cp, 1 CAP PO DAILY, #90 CAP 11 Refills 11/26/24 Lidocaine (LIDODERM 5% TOPICAL PATCH) 1 Patch Ph, 1 PATCH TOP DAILY, #30 PATCH 1 Refill 11/26/24 Trazodone HCl (Trazodone Hydrochloride) 50 Mg Tab, 25 MG PO DAILYP, TAB 11/26/24 Ondansetron HCl (Ondansetron) 4 Mg Tab, 4 MG PO Q8HPRN, TAB 11/26/24 Oxycodone W/ Acetaminophen (Oxycodone/Acetaminophen 10-300 mg) 1 Tab Tab, 1 TAB PO Q6HPRN, TAB 11/26/24 Cyclobenzaprine Hcl (Cyclobenzaprine Hcl) 5 Mg Tab, 1 TAB PO TID, #30 TAB 11/26/24 Amlodipine Besylate (NORVASC TABLET) 5 Mg Tb, 1 TAB PO DAILY, #30 TAB 5 Refills 11/26/24 Isosorbide Mononitrate (Isosorbide Mononitrate Er) 60 Mg Tab, 1 TAB PO DAILY, #30 TAB 5 Refills 11/26/24 Valsartan (Diovan) 40 Mg Tab, 4 TAB PO DAILY, #90 TAB 1 Refill 11/26/24 Furosemide (Furosemide) 20 Mg Tab, 1 TAB PO DAILY, #90 TAB 1 Refill 11/26/24 Metoprolol Succinate (Metoprolol Succinate Er) 50 Mg Tab, 1 TAB PO BID, #30 TAB 5 Refills 11/26/24 Current Medications Current Medications Medications (Trade) Dose Ordered Sig/Matt Route PRN Reason Start Time Stop Time Status Last Admin Albuterol (Ventolin Medneb) 2.5 mg Q6HPRN PRN NEB SHORTNESS OF BREATH 11/26/24 00:00 11/26/24 11:15 Amlodipine Besylate (Norvasc Tablet) 5 mg DAILY PO 11/26/24 10:00 Aspirin 81 mg DAILY PO 11/26/24 10:00 11/26/24 10:39 Ipratropium [place] (Atrovent Medneb) 0.5 mg Q6HPRN PRN NEB SHORTNESS OF BREATH 11/26/24 00:00 Diagnostic Test (Pha) (Accu-Chek Comfort Curve T) 1 strip Q6HR 11/26/24 00:00 11/26/24 18:04 Insulin Human Regular (InsuLIN R) Q6HR SC 11/26/24 00:00 11/26/24 18:08 Dextrose 50 ml UD PRN IV Blood Sugar LESS THAN 60 11/26/24 00:00 Ondansetron HCl (Zofran) 4 mg Q4HP PRN IV NAUSEA / VOMITING 11/26/24 00:00 Acetaminophen (Tylenol Tablet) 650 mg Q6HP PRN PO PAIN SCALE 1-3 OR TEMP>100.4 11/26/24 00:00 11/26/24 05:14 Nitroglycerin (Ntrostat Sublingual) 0.4 mg Q5MINP PRN SL FOR CHEST PAIN 11/26/24 00:00 Morphine Sulfate 2 mg Q30M PRN IV FOR CHEST PAIN 11/26/24 00:00 Budesonide (Pulmicort) 0.25 mg BID NEB 11/26/24 10:00 11/26/24 20:25 Ceftriaxone Sodium 50 ml @ 100 mls/hr DAILY@09 IV 11/26/24 13:30 11/26/24 14:14 Isosorbide Mononitrate (Imdur Er Tablet) 60 mg DAILY PO 11/27/24 10:00 Lidocaine (Lidoderm 5% Topical Patch) 1 patch DAILY TOP 11/27/24 10:00 Metoprolol Succinate (Toprol Xl) 50 mg HS PO 11/26/24 22:00 Montelukast Sodium (Singulair Tablet) 10 mg DAILY PO 11/27/24 10:00 Tamsulosin HCl (Flomax) 0.4 mg HS PO 11/26/24 22:00 Ticagrelor (Brilinta) 90 mg BID PO 11/26/24 22:00 Trazodone HCl (Desyrel) 25 mg DAILYP PO 11/27/24 10:00 Atorvastatin Calcium (Lipitor) 40 mg HS PO 11/26/24 22:00 Oxycodone/ Acetaminophen (Percocet 5/ 325MG Tablet) 2 tab Q6HPRN PRN PO SEVERE PAIN (7-10 PAIN SCALE) 11/26/24 15:00 11/26/24 16:29 Vital Signs Vital Signs Date Time Temp Pulse Resp B/P (MAP) Pulse Ox O2 Delivery O2 Flow Rate FiO2 11/26/24 20:30 82 18 98 11/26/24 20:25 Nasal Cannula* 3 32 11/26/24 17:00 97.5 104/68 (80) 97.5 Physical Exam Gen.: Patient lying in bed in no apparent distress. On supplemental oxygen. Head: Normocephalic, atraumatic. Eyes: EOMI/PERRLA. Ears: Normal hearing. Normal anatomy. Neck/trachea: Trachea midline, supple. Nose: Normal external anatomy. Mouth: Moist mucous membranes. Chest: Decreased air entry bilaterally. No wheezing or rhonchi. Cardiovascular: Positive S1, positive S2. Regular rate and rhythm. Abdomen: Positive bowel sounds in all 4 quadrants. Soft, non-tender, non- distended. : Deferred. Rectal: Deferred. Skin: Warm, dry. Intact. Extremities: 2+ radial pulses bilaterally. No lower extremity edema. Neuro: Awake, alert, oriented x3. No gross motor or sensory deficits. Cranial nerves II through XII intact. Gait not assessed. Labs/Diagnostic Data Labs Test 11/26/24 17:19 11/26/24 08:10 11/26/24 05:10 11/25/24 23:53 Range/Units POC Glucose 142 H 70-106 mg/dl Influenza Type A Antigen Negative Negative Influenza Type B Antigen Negative Negative SARS-CoV-2 Antigen (Rapid) Negative NEGATIVE White Blood Count 16.1 #H 4.4-10.8 10^3/uL Red Blood Count 4.81 4.5-5.90 10^6/uL Hemoglobin 15.8 13.5-17.5 g/dL Hematocrit 44.8 41.0-53.0 % Mean Corpuscular Volume 93.2 80.0-100.0 fL Mean Corpuscular Hemoglobin 32.8 H 28.0-32.0 pg Mean Corpuscular Hemoglobin Concent 35.1 32.0-36.0 g/dL Red Cell Distribution Width 16.2 H 11.8-14.3 % Platelet Count 294 140-450 10^3/uL Mean Platelet Volume 6.8 L 6.9-10.8 fL Neutrophils (%) (Auto) 67.2 37.0-80.0 % Lymphocytes (%) (Auto) 24.3 10.0-50.0 % Monocytes (%) (Auto) 7.6 0.0-12.0 % Eosinophils (%) (Auto) 0.3 0.0-7.0 % Basophils (%) (Auto) 0.6 0.0-2.0 % Neutrophils # (Auto) 10.9 H 1.6-8.6 10 ^3/uL Lymphocytes # (Auto) 3.9 0.4-5.4 10 ^3/uL Monocytes # (Auto) 1.2 0-1.3 10 ^3/uL Eosinophils # (Auto) 0 0-0.8 10 ^3/uL Basophils # (Auto) 0.1 0-0.2 10 ^3/uL Nucleated Red Blood Cells 0.1 % Sodium Level 134 L 136-145 mmol/L Potassium Level 5.5 H 3.5-5.1 mmol/L Chloride Level 100 98-107 mmol/L Carbon Dioxide Level 26 20-31 mmol/L Anion Gap 8 5-15 Blood Urea Nitrogen 37 H 9-23 mg/dL Creatinine 2.54 H 0.700-1.30 mg/dL Glomerular Filtration Rate Calc 26 >90 mL/min BUN/Creatinine Ratio 14.6 10.0-20.0 Serum Glucose 144 H 74-106 mg/dL Hemoglobin A1c 5.5 <5.7 % A1C Calcium Level 9.7 8.7-10.4 mg/dL Triglycerides Level 107 < 150 mg/dL Cholesterol Level 83 < 200 mg/dL LDL Cholesterol 34 < 100 mg/dL HDL Cholesterol 30 L 40-59 mg/dL Hepatitis B Surface Antigen Negative Negative D-Dimer, Quantitative < 0.19 0.0-0.49 mg/L FEU Troponin I High Sensitivity 18 </=54 ng/L Test 11/25/24 19:30 Range/Units B-Type Natriuretic Peptide 61.39 0-100 pg/mL Assessment Impression: Acute on chronic hypoxic respiratory failure Dependence on supplemental oxygen Acute renal failure Hypokalemia Morbid obesity, BMI 42.5 Plan: Supplemental oxygen 2 LPM NC Titrate to keep O2 sats above 92%. Taper O2 as tolerated. CXR demonstrates no acute opacities. Continue bronchodilators/Pulmicort Continue antibiotics Singulair Accu-Cheks, ISS. Monitor renal function. Monitor electrolytes. Supplement as necessary. Monitor ins and outs. Diet and lifestyle modifications for weight reduction Morbid obesity - complicates all care DVT prophylaxis. Prognosis: Poor given patient's multiple co-morbidities. Rest of plan per hospitalist and other consultants. Thank you, MARGY Stevens, for allowing me to participate in this patient's care. Further recommendations will depend on the patient's clinical course. Please do not hesitate to contact me if you have any questions or concerns. This medical document was created using an electronic medical record system with [employer] dictation system. Although these documentations are being carefully reviewed, there may still be some phonetic and typographical changes. The errors are purely typographical, due to imperfection on the software program, and do not reflect any compromise in the patient's medical care. Plan discussed with: Other (GUILHERME Pastrana/MARGY Stevens/) CHRIS CARCAMO MD Nov 26, 2024 21:07
[2024-11-26] MEDS: TAMSULOSIN HYDROCHLORIDE 0.4 MG CAP PO SCH (22:13)
[2024-11-26] MEDS: METOPROLOL SUCCINATE XL 50 MG TAB PO SCH (22:13)
[2024-11-26] MEDS: traZODone HCL 50 MG TAB PO SCH (22:14)
[2024-11-26] MEDS: TICAGRELOR 90 MG TAB PO SCH (22:14)
[2024-11-26] MEDS: ATORVASTATIN 20 MG TAB PO SCH (22:14)
[2024-11-27] VITALS (11 sets, daily range): BP systolic 107–117; BP diastolic 61–74; PULSE 60–103; RESP 16–20; TEMP 97.6–98.2; O2SAT 92–100
[2024-11-27 07:43] LABS: Anion Gap 6 (5-15); Carbon Dioxide 31 mmol/L (20-31); Chloride 98 mmol/L (98-107)
[2024-11-27 07:44] LABS: Calcium 9.6 mg/dL (8.7-10.4)
[2024-11-27 07:45] LABS: Potassium 5.4 mmol/L (3.5-5.1); Sodium 135 mmol/L (136-145)
[2024-11-27 07:49] LABS: BUN/Creatinine Ratio 17.6 (10.0-20.0)
[2024-11-27 07:50] LABS: Blood Urea Nitrogen 31 mg/dL (9-23); Glucose 112 mg/dL (74-106)
[2024-11-27 07:53] LABS: Basophils # (auto) 0.1 10 ^3/uL (0-0.2); Basophils % (auto) 0.5 % (0.0-2.0); Eosinophils # (auto) 0.1 10 ^3/uL (0-0.8); Eosinophils % (auto) 1.3 % (0.0-7.0); Hematocrit 41.9 % (41.0-53.0); Hemoglobin 14.4 g/dL (13.5-17.5); Lymphocytes # (auto) 2.2 10 ^3/uL (0.4-5.4); Lymphocytes % (auto) 21.5 % (10.0-50.0); Mean Corpuscular Hemoglobin 32.1 pg (28.0-32.0); Mean Corpuscular Hgb Conc. 34.3 g/dL (32.0-36.0); Mean Corpuscular Volume 93.4 fL (80.0-100.0); Monocytes # (auto) 0.9 10 ^3/uL (0-1.3); Monocytes % (auto) 8.6 % (0.0-12.0); Neutrophils # (auto) 6.8 10 ^3/uL (1.6-8.6); Neutrophils % (auto) 68.1 % (37.0-80.0); Nucleated Red Blood Cells % 0.1 %; Platelet Count (auto) 220 10^3/uL (140-450); Red Blood Cells 4.49 10^6/uL (4.5-5.90); Red Cell Distribution Width 16.2 % (11.8-14.3)
[2024-11-27] MEDS: LIDOCAINE 5% TOPICAL PATCH TOP SCH (09:30)
[2024-11-27] MEDS: ISOSORBIDE MONONITRATE ER 60 MG TAB PO SCH (09:31)
[2024-11-27] MEDS: MONTELUKAST SODIUM 10 MG TAB PO SCH (09:31)
[2024-11-27] MEDS ORDERED: traZODone HCL 50 MG TAB PO SCH (10:00)
[2024-11-27] MEDS: ONDANSETRON HCL 4 MG/2 ML VIAL IV PRN (12:10)
--- NOTE | 2024-11-27 12:14 | DVHPN2 ---
Subjective Encephalopathic Reviewed: Care Plan, H&P, Labs, Medications Changes from previous H/P or p: No Changes General: Per HPI Objective Vitals Vital Signs Date Time Temp Pulse Resp B/P (MAP) Pulse Ox O2 Delivery O2 Flow Rate FiO2 11/27/24 09:40 60 16 99 11/27/24 09:34 Nasal Cannula* 2 28 11/27/24 09:31 107/61 11/27/24 09:00 97.6 97.6 Intake/Output Intake and Output 11/27/24 07:00 Intake Total 1050 ml Balance 1050 ml Intake Oral 300 ml IV Total 750 ml # Voids 2 General Appearance: moderate distress, Other (Encephalopathic) HEENT: Atraumatic, PERRLA Lungs: Clear to auscultation, Normal air movement Cardiovascular: Regular rate, Normal S1, Normal S2 Abdomen: Normal bowel sounds, Soft, No tenderness Genitourinary: No Apparent Abnormalities Musculoskeletal: Normal sensory function, Normal motor function Neuro: Sensation intact, Cranial nerves 3-12 NL, Other (? seizure activity) Skin: Dry, Intact Psych/Mental Status: Other Medications Current Medications Medications Dose Ordered Sig/Matt Route Start Time Stop Time Status Last Admin Dose Admin Albuterol 2.5 mg Q6HPRN PRN NEB 11/26/24 00:00 11/26/24 11:15 2.5 MG Amlodipine Besylate 5 mg DAILY PO 11/26/24 10:00 11/27/24 09:31 5 MG Aspirin 81 mg DAILY PO 11/26/24 10:00 11/27/24 09:30 81 MG Ipratropium [place] 0.5 mg Q6HPRN PRN NEB 11/26/24 00:00 Diagnostic Test (Pha) 1 strip Q6HR 11/26/24 00:00 11/27/24 12:05 1 STRIP Insulin Human Regular Q6HR SC 11/26/24 00:00 11/27/24 12:05 3 UNITS Dextrose 50 ml UD PRN IV 11/26/24 00:00 Ondansetron HCl 4 mg Q4HP PRN IV 11/26/24 00:00 Acetaminophen 650 mg Q6HP PRN PO 11/26/24 00:00 11/26/24 05:14 650 MG Nitroglycerin 0.4 mg Q5MINP PRN SL 11/26/24 00:00 Morphine Sulfate 2 mg Q30M PRN IV 11/26/24 00:00 Budesonide 0.25 mg BID NEB 11/26/24 10:00 11/27/24 09:34 0.25 MG Ceftriaxone Sodium 50 ml @ 100 mls/hr DAILY@09 IV 11/26/24 13:30 11/27/24 09:30 100 MLS/HR Isosorbide Mononitrate 60 mg DAILY PO 11/27/24 10:00 11/27/24 09:31 60 MG Lidocaine 1 patch DAILY TOP 11/27/24 10:00 11/27/24 09:30 1 PATCH Metoprolol Succinate 50 mg HS PO 11/26/24 22:00 11/26/24 22:13 50 MG Montelukast Sodium 10 mg DAILY PO 11/27/24 10:00 11/27/24 09:31 10 MG Tamsulosin HCl 0.4 mg HS PO 11/26/24 22:00 11/26/24 22:13 0.4 MG Ticagrelor 90 mg BID PO 11/26/24 22:00 11/27/24 09:31 90 MG Atorvastatin Calcium 40 mg HS PO 11/26/24 22:00 11/26/24 22:14 40 MG Oxycodone/ Acetaminophen 2 tab Q6HPRN PRN PO 11/26/24 15:00 11/26/24 22:30 2 TAB Trazodone HCl 25 mg HS PO 11/26/24 22:00 11/26/24 22:14 25 MG Laboratory Results Laboratory Tests 11/27/24 05:50 Chemistry Test 11/27/24 05:50 Calcium Level 9.6 mg/dL (8.7-10.4) Labs and/or images reviewed: Labs reviewed by me, Image(s) reviewed by me Assessment/Plan Assessment/Plan Impression: -acute hypoxic respiratory failure -probable COPD with exacerbation -abdominal pain, left lower quadrant -coronary artery disease with previous stent placement -chronic back pain with both cervical and lumbar spinal stenosis, with surgery -obesity -probable acute kidney injury/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 Total time spent with patient discussing and formulating plan of care: 35 minutes. This medical document was created using an electronic medical record system with [employer] dictation system. Although this document has been carefully reviewed, there may still be some phonetic and typographical errors. These areas are purely typographical due to imperfections of the software programs, and do not reflect any compromise in the patient's medical care. Plan discussed with: Patient, Other (RN) My Orders Orders - SUSY ABBOTT NP Procedure Category Date Status Time Urine Creatinine LAB 11/26/24 Logged 13:14 Ceftriaxone 1gm/50ml PHA 11/26/24 In Process D5w (Rocephin) 13:30 Isosorbide PHA 11/27/24 In Process Mononitrate Tablet 10:00 Lidocaine 5% Topical PHA 11/27/24 In Process Patch (Lidoderm 5% 10:00 Metoprolol Xl PHA 11/26/24 In Process Succinate (Toprol Xl) 22:00 Montelukast Tablet PHA 11/27/24 In Process (Singulair Tablet) 10:00 Tamsulosin PHA 11/26/24 In Process Hydrochloride (Flomax) 22:00 Ticagrelor (Brilinta) PHA 11/26/24 In Process 22:00 Atorvastatin (Lipitor) PHA 11/26/24 In Process 22:00 Oxycodone W/ Acet PHA 11/26/24 In Process 5/325mg Tab (Percocet 15:00 [place] Screen ZAC 11/26/24 In Process 22:44 Abg W/ Co-Ox RT 11/27/24 Logged 11:45 Sodium Bicarb PHA 11/27/24 In Process 50meq/50ml Vial 12:00 Basic Metabolic Panel LAB 11/28/24 Verified 04:00 Basic Metabolic Panel LAB 11/27/24 Logged 11:49 Date of Service: Nov 27, 2024 Billing Provider: SUSY ABBOTT NP Common Visit Codes: [id number] INP/OBS CARE(HIGH) SUSY ABBOTT NP Nov 27, 2024 12:14
[2024-11-27 13:12] LABS: Base Excess -0.5 mmol/L (-2.0-3.0)
[2024-11-27] MEDS: SODIUM BICARB 50mEq/50ml Vial 50 ML in SOD CHL 0.45% 1,000 ML IV ONE (14:17)
[2024-11-27] MEDS: SODIUM ZIRCONIUM CYCL 10 GM PAK PO ONE (14:17)
[2024-11-27 14:19] LABS: Anion Gap 7 (5-15); Calcium 9.4 mg/dL (8.7-10.4); Carbon Dioxide 28 mmol/L (20-31); Chloride 97 mmol/L (98-107); Potassium 5.3 mmol/L (3.5-5.1); Sodium 132 mmol/L (136-145)
[2024-11-27 14:24] LABS: BUN/Creatinine Ratio 21.3 (10.0-20.0)
[2024-11-27 14:25] LABS: Blood Urea Nitrogen 29 mg/dL (9-23); Glucose 187 mg/dL (74-106)
--- NOTE | 2024-11-27 14:54 | DVHPN2 ---
Progress Note Date Seen: Nov 27, 2024 Medical Necessity Reason Pt with a Central, PICC or Fol: No Subjective Patient reports: Other Review of Systems: HEENT:Normal, CVS:Normal, RESPIRATORY:Abnormal, GI:Normal, :Normal, MSK:Normal, NEURO:Normal Objective vital signs Vital Sign Date Time Temp Pulse Resp B/P (MAP) Pulse Ox O2 Delivery O2 Flow Rate FiO2 11/27/24 12:51 98.2 65 18 108/70 (83) 98 98.2 11/27/24 09:34 Nasal Cannula* 2 28 Total Intake and Output 11/26/24 11/26/24 11/27/24 15:00 23:00 07:00 Intake Total 350 ml 700 ml Balance 350 ml 700 ml medications Current Medications Medications Dose Ordered Sig/Matt Route Start Time Stop Time Status Last Admin Dose Admin Albuterol 2.5 mg Q6HPRN PRN NEB 11/26/24 00:00 11/26/24 11:15 2.5 MG Amlodipine Besylate 5 mg DAILY PO 11/26/24 10:00 11/27/24 09:31 5 MG Aspirin 81 mg DAILY PO 11/26/24 10:00 11/27/24 09:30 81 MG Ipratropium [place] 0.5 mg Q6HPRN PRN NEB 11/26/24 00:00 Diagnostic Test (Pha) 1 strip Q6HR 11/26/24 00:00 11/27/24 12:05 1 STRIP Insulin Human Regular Q6HR SC 11/26/24 00:00 11/27/24 12:05 3 UNITS Dextrose 50 ml UD PRN IV 11/26/24 00:00 Ondansetron HCl 4 mg Q4HP PRN IV 11/26/24 00:00 11/27/24 12:10 4 MG Acetaminophen 650 mg Q6HP PRN PO 11/26/24 00:00 11/26/24 05:14 650 MG Nitroglycerin 0.4 mg Q5MINP PRN SL 11/26/24 00:00 Morphine Sulfate 2 mg Q30M PRN IV 11/26/24 00:00 Budesonide 0.25 mg BID NEB 11/26/24 10:00 11/27/24 09:34 0.25 MG Ceftriaxone Sodium 50 ml @ 100 mls/hr DAILY@09 IV 11/26/24 13:30 11/27/24 09:30 100 MLS/HR Isosorbide Mononitrate 60 mg DAILY PO 11/27/24 10:00 11/27/24 09:31 60 MG Lidocaine 1 patch DAILY TOP 11/27/24 10:00 11/27/24 09:30 1 PATCH Metoprolol Succinate 50 mg HS PO 11/26/24 22:00 11/26/24 22:13 50 MG Montelukast Sodium 10 mg DAILY PO 11/27/24 10:00 11/27/24 09:31 10 MG Tamsulosin HCl 0.4 mg HS PO 11/26/24 22:00 11/26/24 22:13 0.4 MG Ticagrelor 90 mg BID PO 11/26/24 22:00 11/27/24 09:31 90 MG Atorvastatin Calcium 40 mg HS PO 11/26/24 22:00 11/26/24 22:14 40 MG Oxycodone/ Acetaminophen 2 tab Q6HPRN PRN PO 11/26/24 15:00 11/26/24 22:30 2 TAB Trazodone HCl 25 mg HS PO 11/26/24 22:00 11/26/24 22:14 25 MG Examination: GENERAL:Normal, HEENT:Normal, NECK:Normal, LUNGS:Abnormal, CVS:Normal, ABDOMEN:Normal, MSK:Normal, SKIN:Normal, NEURO:Normal, :Normal laboratory and microbiology Laboratory Tests 11/27/24 13:40 11/27/24 05:50 Test 11/27/24 13:40 Range/Units Serum Glucose 187 H 74-106 mg/dL Microbiology Date/Time Source Procedure Growth Status 11/26/24 20:55 Nose MRSA Screen - Final Complete Problem List/Assessment/Plan Problem List/Assessment/Plan Acute kidney injury on Chronic kidney disease IIIA hemodynamic mediated etiology Hyperkalemia secondary to spironolactone and Diovan Acute hypoxic respiratory failure Coronary artery disease status post recent stent Prostatomegaly Recommendations better renal function,,hold ivf Hold spironolactone //Diovan as blood pressure on low side--okay to resume at discharge once Potassium and blood pressure is better Medical management of hyperkalemia as ordered Nephrology follow-up in [place] after discharge Patient to follow-up with urology as outpatient for prostatomegaly Plan discussed with: Patient TJ MORRIS MD Nov 27, 2024 14:54
--- NOTE | 2024-11-27 15:57 | DVH ---
EXAM: XR Abdomen, 1 View CLINICAL INDICATION: abdominal pain TECHNIQUE: Frontal supine view of the abdomen/pelvis. COMPARISON: None FINDINGS: GASTROINTESTINAL TRACT: Fecal retention in the colon consistent with constipation. No dilation. BONES/JOINTS: Unremarkable. No acute fracture. OTHER FINDINGS: . . IMPRESSION: Fecal retention in the colon consistent with constipation.
[2024-11-27] MEDS: LACTULOSE 20Gm/30ML SOLN PO PRN (17:49)
--- NOTE | 2024-11-27 22:36 | DVHPN2 ---
Progress Note - Dictate Date Seen: Nov 27, 2024 Medical Necessity Reason Pt with a Central, PICC or Fol: No Subjective Patient seen and examined at bedside. Breathing comfortably on room air. Overnight events reviewed. vital signs Vital Sign Date Time Temp Pulse Resp B/P (MAP) Pulse Ox O2 Delivery O2 Flow Rate FiO2 11/27/24 22:09 88 115/78 11/27/24 22:05 18 100 11/27/24 22:00 Nasal Cannula 3.0 11/27/24 22:00 32 11/27/24 21:00 98.2 98.2 Total Intake and Output 11/26/24 11/26/24 11/27/24 15:00 23:00 07:00 Intake Total 350 ml 700 ml Balance 350 ml 700 ml medications Current Medications Medications Dose Ordered Sig/Matt Route Start Time Stop Time Status Last Admin Dose Admin Albuterol 2.5 mg Q6HPRN PRN NEB 11/26/24 00:00 11/26/24 11:15 2.5 MG Amlodipine Besylate 5 mg DAILY PO 11/26/24 10:00 11/27/24 09:31 5 MG Aspirin 81 mg DAILY PO 11/26/24 10:00 11/27/24 09:30 81 MG Ipratropium [place] 0.5 mg Q6HPRN PRN NEB 11/26/24 00:00 Diagnostic Test (Pha) 1 strip Q6HR 11/26/24 00:00 11/27/24 17:48 1 STRIP Insulin Human Regular Q6HR SC 11/26/24 00:00 11/27/24 17:49 2 UNITS Dextrose 50 ml UD PRN IV 11/26/24 00:00 Ondansetron HCl 4 mg Q4HP PRN IV 11/26/24 00:00 11/27/24 12:10 4 MG Acetaminophen 650 mg Q6HP PRN PO 11/26/24 00:00 11/26/24 05:14 650 MG Nitroglycerin 0.4 mg Q5MINP PRN SL 11/26/24 00:00 Morphine Sulfate 2 mg Q30M PRN IV 11/26/24 00:00 Budesonide 0.25 mg BID NEB 11/26/24 10:00 11/27/24 22:00 0.25 MG Ceftriaxone Sodium 50 ml @ 100 mls/hr DAILY@09 IV 11/26/24 13:30 11/27/24 09:30 100 MLS/HR Isosorbide Mononitrate 60 mg DAILY PO 11/27/24 10:00 11/27/24 09:31 60 MG Lidocaine 1 patch DAILY TOP 11/27/24 10:00 11/27/24 09:30 1 PATCH Metoprolol Succinate 50 mg HS PO 11/26/24 22:00 11/27/24 22:09 50 MG Montelukast Sodium 10 mg DAILY PO 11/27/24 10:00 11/27/24 09:31 10 MG Tamsulosin HCl 0.4 mg HS PO 11/26/24 22:00 11/27/24 22:03 0.4 MG Ticagrelor 90 mg BID PO 11/26/24 22:00 11/27/24 22:08 90 MG Atorvastatin Calcium 40 mg HS PO 11/26/24 22:00 11/27/24 22:08 40 MG Oxycodone/ Acetaminophen 2 tab Q6HPRN PRN PO 11/26/24 15:00 11/27/24 22:07 2 TAB Trazodone HCl 25 mg HS PO 11/26/24 22:00 11/26/24 22:14 25 MG Lactulose 30 ml Q6HPRN PRN PO 11/27/24 15:15 11/27/24 17:49 30 ML objective Gen.: Patient lying in bed in no apparent distress. Breathing on room air. Head: Normocephalic, atraumatic. Eyes: EOMI/PERRLA. Ears: Normal hearing. Normal anatomy. Neck/trachea: Trachea midline, supple. Nose: Normal external anatomy. Mouth: Moist mucous membranes. Chest: Decreased air entry bilaterally. No wheezing or rhonchi. Cardiovascular: Positive S1, positive S2. Regular rate and rhythm. Abdomen: Positive bowel sounds in all 4 quadrants. Soft, non-tender, non- distended. : Deferred. Rectal: Deferred. Skin: Warm, dry. Intact. Extremities: 2+ radial pulses bilaterally. No lower extremity edema. Neuro: Awake, alert, oriented x3. No gross motor or sensory deficits. Cranial nerves II through XII intact. Gait not assessed. laboratory and microbiology Laboratory Tests 11/27/24 13:40 11/27/24 05:50 Test 11/27/24 13:40 Range/Units Serum Glucose 187 H 74-106 mg/dL Assessment/Plan Impression: Acute on chronic hypoxic respiratory failure Acute renal failure Hypokalemia Morbid obesity, BMI 42.5 Events: Patient seen at bedside. Currently breathing on room air Supplemental oxygen PRN Improved O2 requirements Continue bronchodilators Continue antibiotics Incentive spirometry Bicarb drip. Monitor renal function. Monitor electrolytes. Supplement as necessary. Patient with hyperkalemia - K of 5.3 On Lokelma + sodium bicarb drip Patient is stable for discharge from the pulmonary standpoint once hyperkalemia is corrected. Labs and imaging reviewed. Rest of plan as noted below. Plan: Supplemental oxygen PRN Titrate to keep O2 sats above 92%. CXR demonstrates no acute opacities. Continue bronchodilators/Pulmicort Continue antibiotics Singulair Accu-Cheks, ISS. Monitor renal function. Monitor electrolytes. Supplement as necessary. Monitor ins and outs. Diet and lifestyle modifications for weight reduction Morbid obesity - complicates all care DVT prophylaxis. Prognosis: Poor given patient's multiple co-morbidities. Rest of plan per hospitalist and other consultants. Thank you, MARGY Stevens, for allowing me to participate in this patient's care. Further recommendations will depend on the patient's clinical course. Please do not hesitate to contact me if you have any questions or concerns. This medical document was created using an electronic medical record system with [employer] dictation system. Although these documentations are being carefully reviewed, there may still be some phonetic and typographical changes. The errors are purely typographical, due to imperfection on the software program, and do not reflect any compromise in the patient's medical care. Plan discussed with: Patient, Other (GUILHERME Morris) CHRIS CARCAMO MD Nov 27, 2024 22:36
[2024-11-27 23:05] LABS: Urine Bacteria None Seen /hpf (None Seen)
[2024-11-27 23:34] LABS: Urine Blood Negative /uL (Negative); Urine Clarity Clear (Clear); Urine Color Light-Yellow (Yellow); Urine Protein, UAD Negative (Negative); Urine Specific Gravity 1.013 (1.001-1.035); Urine Squamous Epithelial Cell None Seen /hpf (<5); Urine Urobilinogen Normal (Negative); Urine pH 6.5 (5.0-9.0)
[2024-11-27 23:38] LABS: Urine WBC < 1 /HPF (0-3)
[2024-11-28] VITALS (9 sets, daily range): BP systolic 93–113; BP diastolic 51–76; PULSE 60–87; RESP 17–21; TEMP 97.8–98.3; O2SAT 90–100
[2024-11-28 06:41] LABS: Anion Gap 7 (5-15); Carbon Dioxide 28 mmol/L (20-31); Chloride 101 mmol/L (98-107); Potassium 4.3 mmol/L (3.5-5.1)
[2024-11-28 06:42] LABS: Calcium 9.8 mg/dL (8.7-10.4)
[2024-11-28 06:43] LABS: Sodium 136 mmol/L (136-145)
[2024-11-28 06:47] LABS: BUN/Creatinine Ratio 20.4 (10.0-20.0); Blood Urea Nitrogen 22 mg/dL (9-23)
[2024-11-28 06:50] LABS: Glucose 117 mg/dL (74-106)
--- NOTE | 2024-11-28 11:53 | DVHPN2 ---
Progress Note Date Seen: Nov 28, 2024 Medical Necessity Reason Pt with a Central, PICC or Fol: No Subjective Patient reports: No new complaints Review of Systems: Deferred Objective vital signs Vital Sign Date Time Temp Pulse Resp B/P (MAP) Pulse Ox O2 Delivery O2 Flow Rate FiO2 11/28/24 11:26 87 18 100 11/28/24 11:20 Room Air 0.0 11/28/24 11:20 21 11/28/24 09:00 98.2 102/53 (69) 98.2 Total Intake and Output 11/27/24 11/27/24 11/28/24 15:00 23:00 07:00 Intake Total 720 ml 1850 ml Output Total 1225 ml 1125 ml Balance -505 ml 725 ml medications Current Medications Medications Dose Ordered Sig/Matt Route Start Time Stop Time Status Last Admin Dose Admin Albuterol 2.5 mg Q6HPRN PRN NEB 11/26/24 00:00 11/26/24 11:15 2.5 MG Amlodipine Besylate 5 mg DAILY PO 11/26/24 10:00 11/27/24 09:31 5 MG Aspirin 81 mg DAILY PO 11/26/24 10:00 11/28/24 10:05 81 MG Ipratropium [place] 0.5 mg Q6HPRN PRN NEB 11/26/24 00:00 Diagnostic Test (Pha) 1 strip Q6HR 11/26/24 00:00 11/28/24 11:46 1 STRIP Insulin Human Regular Q6HR SC 11/26/24 00:00 11/28/24 11:47 3 UNITS Dextrose 50 ml UD PRN IV 11/26/24 00:00 Ondansetron HCl 4 mg Q4HP PRN IV 11/26/24 00:00 11/27/24 12:10 4 MG Acetaminophen 650 mg Q6HP PRN PO 11/26/24 00:00 11/26/24 05:14 650 MG Nitroglycerin 0.4 mg Q5MINP PRN SL 11/26/24 00:00 Morphine Sulfate 2 mg Q30M PRN IV 11/26/24 00:00 Budesonide 0.25 mg BID NEB 11/26/24 10:00 11/28/24 11:20 0.25 MG Ceftriaxone Sodium 50 ml @ 100 mls/hr DAILY@09 IV 11/26/24 13:30 11/28/24 10:05 100 MLS/HR Isosorbide Mononitrate 60 mg DAILY PO 11/27/24 10:00 11/27/24 09:31 60 MG Lidocaine 1 patch DAILY TOP 11/27/24 10:00 11/28/24 10:05 1 PATCH Metoprolol Succinate 50 mg HS PO 11/26/24 22:00 11/27/24 22:09 50 MG Montelukast Sodium 10 mg DAILY PO 11/27/24 10:00 11/28/24 10:05 10 MG Tamsulosin HCl 0.4 mg HS PO 11/26/24 22:00 11/27/24 22:03 0.4 MG Ticagrelor 90 mg BID PO 11/26/24 22:00 11/28/24 10:05 90 MG Atorvastatin Calcium 40 mg HS PO 11/26/24 22:00 11/27/24 22:08 40 MG Oxycodone/ Acetaminophen 2 tab Q6HPRN PRN PO 11/26/24 15:00 11/28/24 06:38 2 TAB Trazodone HCl 25 mg HS PO 11/26/24 22:00 11/28/24 00:23 25 MG Lactulose 30 ml Q6HPRN PRN PO 11/27/24 15:15 11/27/24 17:49 30 ML laboratory and microbiology Laboratory Tests 11/28/24 05:39 11/27/24 05:50 Test 11/28/24 05:39 Range/Units Serum Glucose 117 H 74-106 mg/dL Microbiology Date/Time Source Procedure Growth Status 11/26/24 20:55 Nose MRSA Screen - Final Complete Problem List/Assessment/Plan Problem List/Assessment/Plan Acute kidney injury on Chronic kidney disease IIIA hemodynamic mediated etiology Hyperkalemia secondary to spironolactone and Diovan Acute hypoxic respiratory failure Coronary artery disease status post recent stent Prostatomegaly Recommendations better renal function, i will signm off this case/pls reconsult as needed Hold spironolactone //Diovan as blood pressure on low side--hold for now as bp low even after dc Nephrology follow-up in [place] after discharge Patient to follow-up with urology as outpatient for prostatomegaly Plan discussed with: Patient, Spouse Dietary Evaluation Review Comments: 1) CCHO 75gm + cardiac diet 2) Refer [facility] on DC 3) Continue current plan of care Expected Outcomes/Goals: Pt will meet >75% estimated needs Fu 3-5 days TJ MORRIS MD Nov 28, 2024 11:53
[2024-11-28] MEDS ORDERED: TICA90TA PO (13:30)
[2024-11-28] MEDS ORDERED: APIX5TAB PO (13:30)
[2024-11-28] MEDS ORDERED: DAPA10TA3 PO (13:30)
[2024-11-28] MEDS ORDERED: SPIR25TA8 PO (13:30)
--- NOTE | 2024-11-28 13:42 | DVHDS2 ---
Discharge Summary Date of Admission Nov 25, 2024 at 23:46 Date of Discharge: Nov 28, 2024 Admitting Diagnosis Acute on chronic respiratory failure Labs/Diagnostic Data: Laboratory Results Test 11/28/24 11:40 11/28/24 05:39 11/27/24 22:53 11/27/24 13:07 POC Glucose 184 mg/dl (70-106) Sodium Level 136 mmol/L (136-145) Potassium Level 4.3 mmol/L (3.5-5.1) Chloride Level 101 mmol/L (98-107) Carbon Dioxide Level 28 mmol/L (20-31) Anion Gap 7 (5-15) Blood Urea Nitrogen 22 mg/dL (9-23) Creatinine 1.08 mg/dL (0.700-1.30) Glomerular Filtration Rate Calc 72 mL/min (>90) BUN/Creatinine Ratio 20.4 (10.0-20.0) Serum Glucose 117 mg/dL (74-106) Calcium Level 9.8 mg/dL (8.7-10.4) Urine Color Light-yellow (Yellow) Urine Clarity Clear (Clear) Urine pH 6.5 (5.0-9.0) Urine Specific [place] 1.013 (1.001-1.035) Urine Protein Negative (Negative) Urine Ketones Negative (Negative) Urine Blood Negative /uL (Negative) Urine Nitrite Negative (Negative) Urine Bilirubin Negative (Negative) Urine Urobilinogen Normal mg/dL (Negative) Urine Leukocyte Esterase Negative /uL (Negative) Urine RBC None seen /hpf (0 - 3) Urine Microscopic WBC < 1 /HPF (0-3) Urine Squamous Epithelial Cells None seen /hpf (<5) Urine Bacteria None seen /hpf (None Seen) Urine Creatinine 35.62 mg/dL (30.0-125.0) Urine Glucose 4+ mg/dL (Normal) Blood Gas Specimen Type Arterial Blood Gas Sample Site Right radial Blood Gas Patient Temperature 37.0 Arterial Blood Date Drawn [id number] Arterial Blood pH 7.446 (7.350-7.450) Arterial Blood Partial Pressure CO2 33.9 mmHg (35.0-48.0) Arterial Blood Partial Pressure O2 68.9 mmHg (83.0-108.0) Arterial Blood HCO3 22.8 mmol/L (21.0-28.0) Arterial Blood Oxygen Saturation 93.6 % (94.0-98.0) Arterial Blood Base Excess -0.5 mmol/L (-2.0-3.0) Arterial Blood Oxyhemoglobin 92.2 % (94.0-98.0) Arterial Blood Carboxyhemoglobin 1.1 % (0.5-1.5) Arterial Blood Methemoglobin 0.4 % (0.0-1.5) Scott Test Yes Blood Gas Total Hemoglobin 15.80 g/dL (13.5-17.5) Blood Gas Liter Flow 0.00 Blood Gas Modality Room air FiO2 % 21.0 Test 11/27/24 05:50 11/26/24 08:10 11/26/24 05:10 11/25/24 23:53 White Blood Count 10.0 10^3/uL (4.4-10.8) Red Blood Count 4.49 10^6/uL (4.5-5.90) Hemoglobin 14.4 g/dL (13.5-17.5) Hematocrit 41.9 % (41.0-53.0) Mean Corpuscular Volume 93.4 fL (80.0-100.0) Mean Corpuscular Hemoglobin 32.1 pg (28.0-32.0) Mean Corpuscular Hemoglobin Concent 34.3 g/dL (32.0-36.0) Red Cell Distribution Width 16.2 % (11.8-14.3) Platelet Count 220 10^3/uL (140-450) Mean Platelet Volume 6.8 fL (6.9-10.8) Neutrophils (%) (Auto) 68.1 % (37.0-80.0) Lymphocytes (%) (Auto) 21.5 % (10.0-50.0) Monocytes (%) (Auto) 8.6 % (0.0-12.0) Eosinophils (%) (Auto) 1.3 % (0.0-7.0) Basophils (%) (Auto) 0.5 % (0.0-2.0) Neutrophils # (Auto) 6.8 10 ^3/uL (1.6-8.6) Lymphocytes # (Auto) 2.2 10 ^3/uL (0.4-5.4) Monocytes # (Auto) 0.9 10 ^3/uL (0-1.3) Eosinophils # (Auto) 0.1 10 ^3/uL (0-0.8) Basophils # (Auto) 0.1 10 ^3/uL (0-0.2) Nucleated Red Blood Cells 0.1 % Influenza Type A Antigen Negative (Negative) Influenza Type B Antigen Negative (Negative) SARS-CoV-2 Antigen (Rapid) Negative (NEGATIVE) Hemoglobin A1c 5.5 % A1C (<5.7) Triglycerides Level 107 mg/dL (< 150) Cholesterol Level 83 mg/dL (< 200) LDL Cholesterol 34 mg/dL (< 100) HDL Cholesterol 30 mg/dL (40-59) Hepatitis B Surface Antigen Negative (Negative) D-Dimer, Quantitative < 0.19 mg/L FEU (0.0-0.49) Troponin I High Sensitivity 18 ng/L (</=54) Test 11/25/24 19:30 B-Type Natriuretic Peptide 61.39 pg/mL (0-100) Other Laboratory Tests 11/28/24 05:39 11/27/24 05:50 Brief Hx & Hospital Course: History of Present Illness 74-year-old male presents for evaluation of shortness for breath. Patient reports being discharged four days ago from a rehab facility. The patient was supposed to receiving oxygen tank yesterday which never came. He presented for worsening shortness for breath that has been ongoing for the past two days. Denies chest pain, cough or fever. No abdominal pain. No other acute complaints reported. Course of hospitalization: Further discussion with the patient reveals that he has had extensive recent medical history including traveling from [place] back in August, going on a cruise and then from there having pneumonia followed by heart attack requiring hospitalization at [facility] as well as rehab at [facility] in [place]. Patient was attempting to travel back to [place] via automobile, when he had worsening shortness of breath. According to the patient's , his oxygen saturation dropped in the 70s. While in the hospital he has had no further signs of hypoxia, essentially being weaned off of oxygen. The patient's was adamant that being oxygen further travel back home. Patient had room air ABG revealing in the following: PH 744, pCO2 33.9, PO2 68.9, HCo3 22.8. on room air. Long discussion was made with the patient and regarding his respiratory status, in addition to not qualifying for home oxygen. Patient was also complaining of abdominal pain, with KUB revealing severe constipation. Patient was placed on bowel regimen with relief of his pain after having several bowel movements. Patient has been ambulating with physical therapy. Discussion was made with the family regarding medication reconciliation, for which she will be provided appropriate refills for his chronic medications given his travel back to [place] and inadequate supply of medications. Both the and patient are agreeable with discharge plan. All questions answered. Physical examination General: Alert and Oriented x3. No acute distress. Well-nourished. Obese Eyes: EOMI. Anicteric. HENT: Moist mucous membranes. Lungs: Clear to auscultation bilaterally. No accessory muscle use. Cardiovascular: Regular rate and rhythm. No murmur. No JVD. Abdomen: Soft, non-tender and non-distended. No palpable masses. Extremities: No edema. Non-tender. Skin: No rashes or lesions. Warm. Neurologic: No focal neurological deficits. CN II-XII grossly intact, but not individually tested. Psychiatric: Cooperative. Appropriate mood and affect. Total time spent with patient discussing and formulating plan of care: 35 minutes. This medical document was created using an electronic medical record system with [employer] dictation system. Although this document has been carefully reviewed, there may still be some phonetic and typographical errors. These areas are purely typographical due to imperfections of the software programs, and do not reflect any compromise in the patient's medical care. 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 Patient will be prescribed refills of Brilinta, Eliquis, amiodarone, spironolactone, Farxiga, as well as Basaglar and Humalog insulin. Patient was to hold Diovan given hyperkalemia and acute kidney injury. Patient also reports having trelogy as well as albuterol rescueInhaler. 36 Discharge Statement: "Patient was advised to return to the ER or call 911 if any headaches, dizziness, shortness of breath, chest pain, abdominal pain, bleeding, fevers, or worsening of medical condition. Patient was counseled about treatment plan, medications, possible side effects, patientverbalized understanding. All questions were answered to the best of my ability. This discharge took greater then 30 minutes in planning, reviewing documentation, counseling the patient, and discussing with other team members." ASSESSMENT ASSESSMENT Assessment Acute hypoxic respiratory failure Date of Service: Nov 28, 2024 Billing Provider: SUSY ABBOTT NP Common Visit Codes: 27378-RUK/OBS DISCH DAY >30min SUSY ABBOTT NP Nov 28, 2024 13:42
[2024-11-28] MEDS ORDERED: INSREG3 INJ (14:21)
[2024-11-28] MEDS ORDERED: INSUINJ37 SC (14:21)
--- NOTE | 2024-11-28 17:24 | DVHSR ---
APPROVED REPORT EXAM: Two-dimensional and M-mode echocardiogram with Doppler and color Doppler. Blood Pressure: 160/97 mmHg INDICATION ef RISK FACTORS Obesity: Height: 5'10, Weight: 260 DIMENSIONS LVDd5.1 (3.8-5.7cm)LA (2D)2.9 (1.9-4.0cm)Aortic Root4.2 (2.0-3.7cm) LVDs3.5 (2.5-4.0cm)LA (MM) (1.9-4.0cm)Aortic Cusp Exc1.9 (1.5-2.0cm) EF (%) 55.0 (55-70%)Rt. Atrium (1.9-4.0cm)Asc. Aorta3.6 cm IVSd0.9 (0.7-1.1cm)RV (D)3.5 (1.8-2.4cm) PWd1.1 (0.7-1.1cm) Mitral Valve MitralMitral Stenosis E wave0.44m/sMV Mean GR.mmHg A wave0.89m/sMV Peak GR.mmHg E/A ratio0.52D MVAcm2 DECEL [id number] 1/2 Tim[place] Aortic Valve Aortic ValveAortic Stenosis V11.04m/Nilo Mean GR.mmHg LVOT Diameter2.3 (1.8-2.4cm)Doppler AVA0.00cm2 Pulmonic Valve V20.85m/s Other Information Quality : Technically LimitedRhythm : Technically limited study due to body habitus.patient position. Conclusion Sinus rhythm. Technically difficult study. Difficult acoustic windows. Concentric LVH with left atrial and aortic root enlargement. Dilation of the sinuses of Valsalva. R V enlargement. Mild mitral annular calcification. Mild aortic sclerosis. Left ventricular systolic performance is preserved at 60% with normal RV function. Doppler reveals no significant regurgitant jets. No pericardial effusion masses or vegetations.
--- NOTE | 2024-11-28 23:40 | DVHPN2 ---
Progress Note - Dictate Date Seen: Nov 28, 2024 Medical Necessity Reason Pt with a Central, PICC or Fol: No Subjective Patient seen and examined at bedside. Breathing comfortably on room air. Overnight events reviewed. vital signs Vital Sign Date Time Temp Pulse Resp B/P (MAP) Pulse Ox O2 Delivery O2 Flow Rate FiO2 11/28/24 14:50 98.3 64 21 96 11/28/24 13:04 113/76 (88) 11/28/24 11:20 Room Air 0.0 11/28/24 11:20 21 Total Intake and Output 11/27/24 11/27/24 11/28/24 15:00 23:00 07:00 Intake Total 720 ml 1850 ml Output Total 1225 ml 1125 ml Balance -505 ml 725 ml objective Gen.: Patient lying in bed in no apparent distress. Breathing on room air. Head: Normocephalic, atraumatic. Eyes: EOMI/PERRLA. Ears: Normal hearing. Normal anatomy. Neck/trachea: Trachea midline, supple. Nose: Normal external anatomy. Mouth: Moist mucous membranes. Chest: Decreased air entry bilaterally. No wheezing or rhonchi. Cardiovascular: Positive S1, positive S2. Regular rate and rhythm. Abdomen: Positive bowel sounds in all 4 quadrants. Soft, non-tender, non- distended. : Deferred. Rectal: Deferred. Skin: Warm, dry. Intact. Extremities: 2+ radial pulses bilaterally. No lower extremity edema. Neuro: Awake, alert, oriented x3. No gross motor or sensory deficits. Cranial nerves II through XII intact. Gait not assessed. laboratory and microbiology Laboratory Tests 11/28/24 05:39 11/27/24 05:50 Test 11/28/24 05:39 Range/Units Serum Glucose 117 H 74-106 mg/dL Assessment/Plan Impression: Acute on chronic hypoxic respiratory failure Acute renal failure Hyperkalemia, resolved Morbid obesity, BMI 42.5 Events: Patient seen at bedside. Breathing on room air Supplemental oxygen PRN Continue antibiotics Incentive spirometry Monitor renal function. Monitor electrolytes. Supplement as necessary. Potassium of 4.3 Patient is stable for discharge from the pulmonary standpoint. Follow up in 1-2 weeks with PCP Recommend sleep study as outpatient Recommend pulmonary function testing as outpatient Labs and imaging reviewed. Rest of plan as noted below. Plan: Supplemental oxygen PRN Titrate to keep O2 sats above 92%. Pulmicort Singulair Continue antibiotics Accu-Cheks, ISS. Monitor renal function. Monitor electrolytes. Supplement as necessary. Monitor ins and outs. Diet and lifestyle modifications for weight reduction Morbid obesity - complicates all care DVT prophylaxis. Prognosis: Poor given patient's multiple co-morbidities. Rest of plan per hospitalist and other consultants. Thank you, MARGY Stevens, for allowing me to participate in this patient's care. Further recommendations will depend on the patient's clinical course. Please do not hesitate to contact me if you have any questions or concerns. This medical document was created using an electronic medical record system with [employer] dictation system. Although these documentations are being carefully reviewed, there may still be some phonetic and typographical changes. The errors are purely typographical, due to imperfection on the software program, and do not reflect any compromise in the patient's medical care. Dietary Evaluation Review Comments: 1) CCHO 75gm + cardiac diet 2) Refer Senior Business Development Manager on DC 3) Continue current plan of care Expected Outcomes/Goals: Pt will meet >75% estimated needs Fu 3-5 days Plan discussed with: Patient, Other (GUILHERME Morris) CHRIS CARCAMO MD Nov 28, 2024 23:40
== END 2024-11-28 16:13 | disposition home or self-care (01) | DRG 682 ==
LOC: ER 17:46 → OVERFLOW 23:46 → TELE-WESTW 11-26 12:02
PROVIDERS: ADMIT Nurse Practitioner Acute Care; ATTEND Nurse Practitioner Acute Care
DX: N17.0 Acute kidney failure with tubular necrosis (principal); J96.21 Acute and chronic respiratory failure with hypoxia; Z68.41 Body mass index [BMI] 40.0-44.9, adult; J44.1 Chronic obstructive pulmonary disease with (acute) exacerbation; N18.32 Chronic kidney disease, stage 3b; E66.01 Morbid (severe) obesity due to excess calories; Z20.822 Contact with and (suspected) exposure to COVID-19; E11.65 Type 2 diabetes mellitus with hyperglycemia; M54.9 Dorsalgia, unspecified; E87.5 Hyperkalemia; I25.10 Atherosclerotic heart disease of native coronary artery without angina pectoris; T50.0X5A Adverse effect of mineralocorticoids and their antagonists, initial encounter; N40.0 Benign prostatic hyperplasia without lower urinary tract symptoms; I12.9 Hypertensive chronic kidney disease with stage 1 through stage 4 chronic kidney disease, or unspecified chronic kidney disease; E11.22 Type 2 diabetes mellitus with diabetic chronic kidney disease; E87.6 Hypokalemia; D72.829 Elevated white blood cell count, unspecified; G89.29 Other chronic pain; M48.061 Spinal stenosis, lumbar region without neurogenic claudication; Z99.81 Dependence on supplemental oxygen; Z95.5 Presence of coronary angioplasty implant and graft; Z95.0 Presence of cardiac pacemaker; Z83.3 Family history of diabetes mellitus; Z82.49 Family history of ischemic heart disease and other diseases of the circulatory system; Z82.5 Family history of asthma and other chronic lower respiratory diseases; Z82.3 Family history of stroke; Z82.0 Family history of epilepsy and other diseases of the nervous system; Z80.3 Family history of malignant neoplasm of breast; Z79.899 Other long term (current) drug therapy
CPT/HCPCS: 36415; 36600; 71045; 74018; 76775; 80048; 80061; 81001; 82570; 82805; 82962; 83036; 83880; 84484; 85025; 85379; 87081; 87340; 87426; 87804; 93005; 93306; 94640; 99291; G0378; J1815; J2405; Q0162